=== PATIENT | female | born 1955 | race Caucasian/White ===

== ENCOUNTER 2018-05-14 06:11 | Day surgery (SDC) | payer BC, SELFPAY ==
--- NOTE | 2018-05-14 05:55 | PDOC.DSDIS_ITS ---
Discharge Plan Disposition Patient Disposition: HOME Condition: Good Discharge Details Reason For Visit: CHRONIC LLQ PAIN / SCREENING Attending Provider: Ana Rosa Shaver Primary Care Provider: Melissa Burns Home Meds and New Rx's Prescriptions: Continue ibuprofen 200 mg Tablet 200 - 600 mg PO QID PRNRF: 0 Discharge Instructions Instructions: Colonoscopy (DC), Diverticulosis (DC) Additional Instructions: Findings: Diverticulosis Follow up: 10 years New Medications: none Please call if you develop: fevers >101.5 Nausea or Vomiting Abdominal pain that is not transient 1. Because there will be medication in your system for the next 24 hours, you may feel a little sleepy. Your coordination will be affected. Therefore: a. Do not drive or operate dangerous equipment for 24 hours. b. Do not drink alcohol beverages for 24 hours (not even beer). c. Plan to go home and rest for the day. 2. Generally there are no restrictions on your activity after a day or so has gone by, but you may feel a bit fatigued for a few days. 3 After you arrive home you may have a light meal and return to a normal diet as you can tolerate it without feeling sick to your stomach. 4. After surgery, you may feel pain or discomfort. This should be only transient , but if it persists please contact your doctor. 5. If there are any questions regarding the findings of your procedure, please feel free to contact your doctor. 6. If you are unable to contact your doctor with a problem, contact the hospital at [phone]. 7. Continue all your regular medications unless directed otherwise. I understand the above instructions and have no questions. Signature of Patient or Responsible Adult Escort Date/Time Name of Responsible Adult Escort Signature of Nurse Date/Time Activity:: Activity as Tolerated Diet:: High Fiber diet Discharge Orders Discharge Orders: Discharge Order (Routine); Ordered 05/14/18 Ordered By: Ana Rosa Shaver DS: Diagnosis Discharge Diagnosis (1) Diverticulosis large intestine w/o perforation or abscess w/o bleeding: Status: Acute
--- NOTE | 2018-05-14 05:55 | W.COLOREPORT ---
Colonoscopy Report Date of procedure: 05/14/18 Pre-op diagnosis general: Colon Cancer screening, intermittent LLQ pain Post-op diagnosis procedure note: other (Sigmoid Diverticulosis) Procedure: Colonoscopy Surgeon: Ana Rosa Shaver Anesthesia proc note operative: MAC (Lenin Felder CRNA) Estimated blood loss (mL): 0 Pathology: none sent Complications: None Disposition: same day Indications: Mrs. Remy is a pleasant 62 year old female seen in the office for a screening Colonoscopy. She also complaint of intermittent LLQ pain. Has hx of diverticulosis about 5 years ago. Risks, benefits and complications were reviewed and she wished to proceed. No guarantees were given or implied. Prep: Miralax/Dulcolax Procedure Start Time: 07:25 Procedure End Time: 07:42 Retraction Time: 10 minutes Findings: Severe Diverticulosis of the sigmoid Colon. Procedure Description: After informed consent was obtained the patient was taken to the procedure room and placed in a left decubitous position. Monitors were applied and a time out was done. The patients name, date of , procedure, allergies to medications and metal in their body was reviewed. The patient was then sedated. Once sedated and comfortable a rectal exam was done. External exam was normal. Internal exam revealed a normal sphincter tone and no palpable masses. The scope was then introduced and retroflexed. No internal hemorrhoids were identified. The scope was then advanced to the cecum without difficulty. The TI and appendiceal orifice were identified. The prep was adequate. The scope was then slowly retracted over 10 minutes back into the rectum. The scope was removed and the patient was woken up and taken back to Same day surgery in stable condition. Diverticulosis of the sigmoid colon was identified. The patient tolerated the procedure well and there were no immediate complications. Follow up: The patient should follow up in 10 years unless they develop changes in bowel habits or other new gastrointestinal complaints.
--- NOTE | 2018-05-14 05:55 | W.PM.HP.N ---
Assessment and Plan (1) Encounter for screening colonoscopy: Current visit: No Status: Acute P\\ Colonoscopy under sedation Risks, benefits and complications were reviewed with the patient. Complications include but are not limited to bleeding, pain, perforation, missed small lesion or polyp, sore throat, aspiration or adverse reaction to the medication. Questions were answered to the patient's satisfaction and they wish to proceed. No guarantees were given or implied. Mrs. Remy was seen in the office on March 26 to discuss a colonoscopy. Her last colonoscopy was 10 years ago and she was found to have some mild diverticulosis about 5 years ago she had a bout of severe diverticulitis and was treated with antibiotics about 7 months ago now she started to have some mild left lower quadrant pain the pain is dull and there are spikes of pain intermittently. When she has the spikes of pain she places herself in a soft low-fat diet and the pain seems to get better. She has very regular BMs she has not had a follow-up CT scan because she is very claustrophobic and would need Versed to have it done when she was seen in the office in February she was not having any pain. There have been no changes in her health since she was seen in the office. Review of Systems Cardiovascular Denies chest pain, Denies chest pain at rest and Denies irregular heart rhythm Respiratory Denies chest congestion and Denies cough PFSH Family History Other Heart disease Medical History Chronic abdominal pain Claustrophobia Diverticulitis Dyspareunia in female Elevated blood pressure reading GERD (gastroesophageal reflux disease) Palpitations Social History Smoking/Tobacco Use Status: Former Tobacco Use Surgical History Colonoscopy - IV Sedation Meds Home Medications Medication Instructions Recorded Confirmed Type ibuprofen 200 - 600 mg PO QID PRN 05/13/18 05/13/18 History Allergies Allergy/AdvReac Type Severity Reaction Status Date / Time No Known Allergies Allergy Unverified 05/13/18 08:30 Exam Resp Effort & Inspection: normal respiratory effort Auscultation: clear to auscultation bilaterally Cardio Rate: regular rate Rhythm: regular rhythm Heart Sounds: no gallops, no murmurs and no rubs
[2018-05-14 06:22] VITALS: BP 131/91; PULSE 99; RESP 18; TEMP 36.3; O2SAT 97
[2018-05-14] MEDS: Lactated Ringers 1,000 ML 80 ML IV (06:46)
== END 2018-05-14 08:40 | disposition home or self-care (01) ==
PROVIDERS: PCP Family Medicine; Visit Provider Surgery
PROC: 0DJD8ZZ Inspection of Lower Intestinal Tract, Via Natural or Artificial Opening Endoscopic (ICD-10-PCS; CPT 45378; principal; 2018-05-14 07:30)
DX: Z12.11 Encounter for screening for malignant neoplasm of colon (principal); R10.32 Left lower quadrant pain; K57.30 Diverticulosis of large intestine without perforation or abscess without bleeding
CPT/HCPCS: 45378; NC; J2250; J3010

== ENCOUNTER 2019-05-27 09:51 | Outpatient (CLI) | payer BC, SELFPAY ==
[2019-05-27 11:01] LABS: C-Reactive Protein 0.05 mg/dL (0.0-0.3)
[2019-05-27 11:24] LABS: ESR 19 mm/hr (0-30)
== END 2019-05-27 10:11 ==
PROVIDERS: PCP Family Medicine; Visit Provider Psychiatry & Neurology Neurology
DX: R51 Headache (principal); R20.0 Anesthesia of skin
CPT/HCPCS: 36415; 85652; 86140

== ENCOUNTER 2019-06-04 15:58 | Outpatient (REF) | payer BC, SELFPAY ==
[2019-06-04 19:27] LABS: HCT 37.4 % (36.0-46.0); HGB 12.7 g/dL (12.0-15.5); Mean Corpuscular Hemoglobin 29.7 pg (27.0-33.0); Mean Corpuscular Volume 87.4 fL (80-95); Mean Platelet Volume 10.2 fL (8.0-11.0); Platelet Count 284 x1000/uL (130-400); RBC 4.28 m/cumm (4.00-5.20); RBC Distribution Width 12.6 % (11.7-14.6)
[2019-06-04 19:38] LABS: Anion Gap 7.5 mmol/L (3-11); BUN 15 mg/dL (7-18); CO2 29.5 mmol/L (21.0-32.0); CREATININE 0.85 mg/dL (0.55-1.02); Calcium 8.8 mg/dL (8.5-10.1); Chloride 106 mmol/L (98-107); Glucose 90 mg/dL (70-100); Potassium 3.8 mmol/L (3.5-5.1); Sodium 143 mmol/L (136-145)
[2019-06-04 20:03] LABS: Hemoglobin A1C 5.3 % (4.5-6.2)
== END 2019-06-04 16:18 ==
LOC: NCHCN 15:58
PROVIDERS: PCP Family Medicine; Visit Provider Family Medicine
DX: R03.0 Elevated blood-pressure reading, without diagnosis of hypertension (principal); R00.2 Palpitations; Z13.1 Encounter for screening for diabetes mellitus; Z00.00 Encounter for general adult medical examination without abnormal findings
CPT/HCPCS: 80048; 85027; 83036

== ENCOUNTER 2021-06-15 13:38 | Outpatient (REF) | payer BC, SELFPAY ==
--- NOTE | 2021-06-15 08:30 | PAPFT_PTH ---
PATIENT: Salma Remy LOC: LOCATED WITHIN [facility]#:[id number] AGE/SX: 65/F ROOM: RE06/15/[address]: Melissa Burns : 1955 BED: DIS: 06/15/2021 SPEC #: [id number] RECD: 06/15/21 18:28 STATUS: TRICIA REQ #: [id number] JEEVAN: 06/15/21 08:[address]: Melissa Burns DEPT: [facility] Cytology RECD BY: Ángela Davis Tissues: 1 - CX/ENDOCX FOR PAP SMEARS Procedures: PAP THIN PREP/UVM Screening HPV DNA PROBE Comments: [id number]
[2021-06-15 14:44] LABS: HCT 38.9 % (36.0-46.0); HGB 12.9 g/dL (11.2-15.7); MCH 28.7 pg (27.0-33.0); MCHC 33.2 % (32.0-36.0); MCV 86.4 fL (80-95); MPV 10.8 fL (8.0-11.0); Platelet Count 271 10^3/uL (130-400); RDW 12.3 % (11.7-14.6); RDW-SD 39.4 fL; WBC 4.94 10^3/uL (4.4-10.8)
[2021-06-15 15:03] LABS: Hemoglobin A1C 5.1 % (<5.7)
[2021-06-15 15:10] LABS: ALT 36 U/L (14-59); AST 25 U/L (15-37); Alkaline Phosphatase 114 U/L (46-116); Anion Gap 10.9 mmol/L (3-11); BUN 15 mg/dL (7-18); Bilirubin, Total 0.3 mg/dL (0.2-1.0); CO2 27.1 mmol/L (21.0-32.0); CREATININE 0.8 mg/dL (0.55-1.02); Calcium 8.9 mg/dL (8.5-10.1); Chloride 105 mmol/L (98-107); Glucose 91 mg/dL (74-106); Sodium 143 mmol/L (136-145); TSH (W/Ref FT4) 2.96 uIU/mL (0.36-3.74); Total Protein 7.5 g/dL (6.4-8.2)
[2021-06-16 10:52] LABS: Hepatitis C Ab w Rflx HCV PCR Negative (Negative)
[2021-06-16 11:20] LABS: HIV-1/2 Ag & Ab Screen Negative (Negative)
[2021-06-20 15:05] LABS: IgA 116 mg/dL (85-499); Interpretation (See Note); Tissue Transglutaminase IgA <1.2 U/mL (<4.0)
== END 2021-06-15 13:39 | disposition home or self-care (01) ==
LOC: NCHCN 13:38
PROVIDERS: PCP Family Medicine; Visit Provider Family Medicine
DX: R23.8 Other skin changes (principal); R10.9 Unspecified abdominal pain; R00.2 Palpitations; Z11.59 Encounter for screening for other viral diseases; Z12.4 Encounter for screening for malignant neoplasm of cervix; Z11.4 Encounter for screening for human immunodeficiency virus [HIV]
CPT/HCPCS: 80053; 82784; 83516; 85027; 86803; 87389; 88142; 83036; 84443; 87624

== ENCOUNTER 2021-07-27 07:39 | Outpatient (RCR) | payer BC, SELFPAY ==
--- NOTE | 2021-07-27 09:45 | HOLTER_ITS ---
APPROVED REPORT Conclusion This is a 48-hour Holter monitor ordered for palpitations Predominant rhythm was sinus with an average heart rate of 70. Minimum was 53, maximum 112 A total of 10 isolated atrial premature beats were recorded There were very rare ventricular ectopic beats, 1 couplet, 1 triplet. There was a 5 beat run of acce lerated idioventricular rhythm rate approximately 50 There was no atrial fibrillation, no high-grade AV block, no pauses greater than 3 seconds Patient symptoms corresponded to sinus rhythm in the 80s
== END 2021-07-29 23:59 | disposition home or self-care (01) ==
LOC: RT 07:39
PROVIDERS: PCP Family Medicine; Visit Provider Family Medicine
DX: R00.2 Palpitations (principal); I49.1 Atrial premature depolarization; I49.8 Other specified cardiac arrhythmias
CPT/HCPCS: 93225; 93226

== ENCOUNTER 2021-09-28 10:21 | Outpatient (REF) | payer BC, SELFPAY ==
[2021-09-28 14:48] LABS: Anion Gap 9.4 mmol/L (3-11); BUN 20 mg/dL (7-18); CO2 26.6 mmol/L (21.0-32.0); CREATININE 0.9 mg/dL (0.55-1.02); Calculated LDL 149 mg/dL (<100); Chloride 106 mmol/L (98-107); Cholesterol 244 mg/dL (<200); Glucose 90 mg/dL (74-106); HDL Cholesterol 43 mg/dL (40-60); Potassium 4.4 mmol/L (3.5-5.1); Sodium 142 mmol/L (136-145); Triglyceride 264 mg/dL (<150)
== END 2021-09-28 10:22 | disposition home or self-care (01) ==
LOC: LBN 10:21
PROVIDERS: PCP Family Medicine; Visit Provider Family Medicine
DX: I10 Essential (primary) hypertension (principal); Z13.220 Encounter for screening for lipoid disorders
CPT/HCPCS: 80048; 80061

== ENCOUNTER 2022-01-04 13:32 | Outpatient (REF) | payer BC, SELFPAY ==
[2022-01-04 21:14] LABS: ALT 32 U/L (14-59); AST 26 U/L (15-37); Albumin 3.9 g/dL (3.4-5.0); Alkaline Phosphatase 113 U/L (46-116); Anion Gap 7.8 mmol/L (3-11); BUN 11 mg/dL (7-18); Bilirubin, Total 0.3 mg/dL (0.2-1.0); CO2 28.2 mmol/L (21.0-32.0); CREATININE 0.8 mg/dL (0.55-1.02); Calcium 8.7 mg/dL (8.5-10.1); Chloride 105 mmol/L (98-107); Glucose 81 mg/dL (74-106); Potassium 3.9 mmol/L (3.5-5.1); Sodium 141 mmol/L (136-145); Total Protein 7.3 g/dL (6.4-8.2)
== END 2022-01-04 13:33 | disposition home or self-care (01) ==
LOC: NCHCN 13:32
PROVIDERS: PCP Family Medicine; Visit Provider Family Medicine
DX: R10.9 Unspecified abdominal pain (principal); I10 Essential (primary) hypertension
CPT/HCPCS: 80053

== ENCOUNTER → 2022-03-08 01:42 | Outpatient (CLI) | payer BC, SELFPAY ==
--- NOTE | 2022-03-08 | DI.MAMMO_ITS ---
Exam(s) MAMMO SCREENING EXAM: MAMMO SCREENING CLINICAL HISTORY: SCREENING, Z12.39 TECHNIQUE: Mammograms were interpreted according to the usual protocol including computer analysis w [employer] CAD system, tomosynthesis and C-view imaging. COMPARISON: FINDINGS: The breasts are of moderate density with fairly symmetrical distribution of fibroglandular tissue. N o dominant mass or clumped microcalcification is identified in either breast. The current examinatio n is compared with previous examinations including January 2018 and there has been no gross interval chu nge in appearance in comparison with prior studies. IMPRESSION: No specific evidence of malignancy at this time. Routine screening examinations are suggested at yea rly intervals in this age group according to the ACS ACR guidelines. BI-RADS Category 1 - Negative Breast Density - Category B - Scattered areas of fibroglandular density
== END ==
PROVIDERS: PCP Family Medicine; Visit Provider Family Medicine
DX: Z12.31 Encounter for screening mammogram for malignant neoplasm of breast (principal)
CPT/HCPCS: 77063; 77067

== ENCOUNTER 2022-05-19 10:59 | Emergency (ER) | payer BC, SELFPAY ==
[2022-05-19 11:12] VITALS: BP 132/86; PULSE 115; RESP 22; TEMP 39.1; O2SAT 99
[2022-05-19 12:09] LABS: COVID-19 PCR Negative (Negative); Influenza A PCR Negative (Negative); Influenza B PCR Negative (Negative); RSV PCR Negative (Negative)
--- NOTE | 2022-05-19 12:23 | ED.GENADUL_ITS ---
Discharge Plan Disposition Patient Disposition: HOME Condition: Improving Discharge Details Clinical Impression: Acute streptococcal pharyngitis, Fever Primary Care Provider: Melissa Burns ED Provider: Mikayla Kramer Home Meds and New Rx's Prescriptions: Continued lisinopril 5 mg tablet 5 mg PO DAILY metoprolol succinate 25 mg tablet extended release 24 hr 25 mg PO DAILY omeprazole 40 mg capsule,delayed release(DR/EC) 40 mg PO DAILY ibuprofen 200 mg tablet 200 mg PO Q6H PRN ibuprofen 200 mg Tablet 200 - 600 mg PO QID PRN Discharge Instructions Instructions: Pharyngitis (ED), Fever in Adults (ED) Additional Instructions: Your rapid strep test today is positive. You were given a dose of antibiotics for treatment of strep throat which is a bacterial infection. Your monoscreen test for the viral infection mononucleosis is still pending and you will be notified if it is positive. Drink plenty of fluids and get plenty of rest. Alternate tylenol and motrin as needed and directed for pain. Follow-up with your primary care doctor in 1 week. Return to the emergency department with any worsening or new concerning symptoms. Discharge Data Discharge Physician: Mikayla Kramer Medical Decision Making 66-year-old female presents with fever, sore throat, body aches and headache for the past 4 days status post a COVID-vaccine. Temp 102.4 on arrival. Last dose of Tylenol 8 AM this morning and last dose of ibuprofen last night. Patient appears uncomfortable but nontoxic. She has no meningeal signs. Her oropharynx is edematous with white exudates. Anterior cervical lymphadenopathy. Uvula midline, no peritonsillar abscess. Lungs clear bilaterally. Abdomen soft and nontender. Due to high volume and acuity on arrival, fluvid swab obtained on arrival and negative. Discussed with patient that her symptoms could be secondary to the COVID-vaccine but due to her oropharyngeal findings and sore throat, consider strep pharyngitis or mono. She declined an IV or IV fluids. History and presentation does not appear consistent with meningitis. Will obtain a rapid strep, monoscreen and give a dose of PO decadron and oral Tylenol and ibuprofen and reassess. Recheck temp downtrending to 100.7. Rapid strep positive. Discussed with patient and she is agreeable with a Bicillin injection. Patient feels comfortable going home. Discussed that monoscreen is pending. Advised to increase fluids and rest. Advised to follow up with the primary care doctor for re-evaluation. Usual and customary return precautions given prior to discharge. Medical Records Medical records reviewed: Yes I reviewed the patient's medical records. HPI General Mode of arrival: ambulatory . Date/Time Provider Initiated Documentation: 05/19/22 11:20 . Limitations to Documentation: no limitations . Information obtained by: patient . HPI Narrative: Pt is a 66-year-old female presents with 4 days of fever, headache, sore throat, body aches and fatigue. Patient states she received the COVID-vaccine 4 days ago. Patient states she has been taking Tylenol and ibuprofen for her fever with temporary relief. She states her last dose of ibuprofen was last night and last dose of Tylenol was with Coricidin BP 8:00 this morning. She states her headache is mainly frontal. She denies any posterior headache. She does admit to neck pain but states this is chronic and slightly worse than usual. She denies any chest pain or difficulty breathing, abdominal pain, vomiting or diarrhea. Related Data Home Medications Medication Instructions Recorded Confirmed ibuprofen 200 mg tablet 200 - 600 mg PO QID PRN 05/13/18 05/19/22 ibuprofen 200 mg tablet 200 mg PO Q6H PRN 08/23/21 05/19/22 omeprazole 40 mg capsule,delayed 40 mg PO DAILY 08/23/21 05/19/22 release lisinopril 5 mg tablet 5 mg PO DAILY 09/07/21 05/19/22 metoprolol succinate 25 mg 25 mg PO DAILY 09/07/21 05/19/22 tablet,extended release 24 hr Allergies Allergy/AdvReac Type Severity Reaction Status Date / Time No Known Allergies Allergy Verified 09/07/21 12:45 General Stated Complaint: GenMedical ABDULLAHI: 3 Review of Systems All systems reviewed & are unremarkable except as noted in HPI and below Constitutional Constitutional: Reports as per HPI, Reports body ache(s), Denies chills, Reports fatigue, Reports fever(s) and Reports headache(s) Eyes Eyes: Denies blurry vision ENT Ears, Nose, Mouth, and Throat: Denies dizziness, Reports headache(s), Reports sore throat and Denies throat swelling Cardiovascular Cardiovascular: Denies chest pain and Denies dyspnea Respiratory Respiratory: Denies cough and Denies dyspnea Gastrointestinal Gastrointestinal: Denies abdominal pain, Denies diarrhea and Denies vomiting Genitourinary Genitourinary: Denies hematuria and Denies dysuria Musculoskeletal Musculoskeletal: Denies back pain and Denies numbness Integumentary/Breasts Skin/Breast: Denies lesions and Denies rash Neurologic Neurologic: Denies dizziness, Reports headache(s), Denies localized weakness and Denies numbness Endocrine Endocrine: Reports fatigue Allergic/Immunologic Allergic/Immunologic: Denies throat swelling PFSH All Active Problems (Updated 05/19/22 @ 13:59 by Mikayla Kramer DO) Acute streptococcal pharyngitis (Acute) Fever (Acute) Referred otalgia of left ear (Acute) Lactose intolerance (Acute) Mitral valve regurgitation (Chronic) Left ventricular hypertrophy (Acute) Hypertension, essential, benign (Acute) Cervical lymphadenopathy (Acute) Left ear pain (Acute) Left facial pain (Acute) Diverticulosis large intestine w/o perforation or abscess w/o bleeding (Acute) Encounter for screening colonoscopy (Acute) Neoplasm of unspecified nature of bone, soft tissue, 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/17) Medical History Abdominal pain, epigastric Chronic abdominal pain Claustrophobia Diverticulitis Dyspareunia in female Elevated blood pressure reading GERD (gastroesophageal reflux disease) Herpes labialis Hx of diverticulitis of colon Palpitations Surgical History Colonoscopy - IV Sedation 2007- H/O section x3 S/P appendectomy Family History Mother Heart disease Sister Thyroid condition Autoimmune liver disease Brother Thyroid condition Diabetes Brother Diabetes Social History Smoking/Tobacco Use Status: Former Tobacco Use Quit Date: 07/30/82 Pack-years: 8 Smoking risk assessment performed?: Yes Alcohol Intake: never Drug use: Never Substance use type: does not use Household members: spouse Housing: house Number of Children: 5 current occupation: [employer] Pets and animals: Yes Pets and animals: cat(s) and dog(s) What is your relationship status?: Panel score (0-1 are the most socially isolated patients): 1 Seatbelt use: always Do you feel safe in your relationship?: Yes Exam Const General: cooperative, healthy appearing and no acute distress Orientation: alert, awake and oriented x3 HENMT Head: normal to inspection Ears: hearing grossly normal bilaterally, external ears normal and TM's normal bilaterally Face and sinus: normal facial exam Throat: uvula midline, no peritonsillar masses and posterior oropharynx abnormal edema, erythema and exudates Eyes General: appearance normal, both eyes and all related structures Pupils: PERRL EOM: EOM intact bilaterally Neck Neck: normal visual inspection and No submandibular swelling Lymphatic: lymphadenopathy bilateral anterior cervical soft and tender Chest Chest: normal inspection of the chest and no tenderness Resp Effort & Inspection: normal respiratory effort and able to speak in complete sentences Auscultation: clear to auscultation bilaterally Cardio Rate: tachycardic Rhythm: regular rhythm GI Inspection: normal to inspection Palpation: soft, not firm, not rigid and nontender Auscultation: hypoactive bowel sounds Back/Spine/Pelvis Thoracic/Lumbar Spine: thoracic and lumbar spine normal to inspection Pelvis: no pain with anterior-posterior compression Skin General skin exam: no rashes or lesions noted Neuro General: patient alert, patient awake, patient oriented x3, moves all extremities and no meningeal signs Cranial Nerves: CN's II-XI intact bilaterally Cognition: normal cognition Speech: speech normal Motor: muscle tone normal throughout and strength 5/5 throughout Sensory Exam: no sensory deficits noted Extrem General: normal to inspection, full ROM, capillary refill normal, no calf tenderness bilaterally and no edema Psych Appearance: grossly normal Mental Status: mental status grossly normal Speech and Movement: speech and movement normal Affect: normal affect Course Vital Signs Vital signs: Vital Signs Temperature 102.3 F H 05/19/22 11:12 Pulse 115 H 05/19/22 11:12 Respiratory Rate 05/19/22 11:12 Blood Pressure 132/86 05/19/22 11:12 Pulse Oximetry 99 05/19/22 11:12 Temperature 102.3 F H 05/19/22 11:12 Temperature Source Oral 05/19/22 11:12 Pulse 115 H 05/19/22 11:12 Respiratory Rate 05/19/22 11:12 Blood Pressure 132/86 05/19/22 11:12 Blood Pressure Position Sitting 05/19/22 11:12 Pulse Oximetry 99 05/19/22 11:12 Oxygen Delivery Method Room Air 05/19/22 11:12 Oxygen Flow Rate 0 05/19/22 11:12 Lab/Test Results Lab/Test Results: Laboratory Tests Range/Units 05/19/22 11:24 COVID-19 Source Not Applicable SARS-CoV-2 (PCR) (Negative) Negative Influenza Type A (PCR) (Negative) Negative Influenza Type B (PCR) (Negative) Negative RSV (PCR) (Negative) Negative
[2022-05-19] MEDS: Acetaminophen 500 MG TAB 1000 MG PO (12:33)
[2022-05-19] MEDS: Ibuprofen 600 MG TAB PO (12:33)
[2022-05-19] MEDS: Dexamethasone 10 MG/ML VIAL PO (13:04)
[2022-05-19 13:15] LABS: Mono Screening Negative (Negative)
[2022-05-19 13:24] VITALS: RESP 18
[2022-05-19 13:27] VITALS: TEMP 38.2
[2022-05-19 13:56] VITALS: BP 103/69; PULSE 88; RESP 18; TEMP 38.2; O2SAT 95
== END 2022-05-19 14:10 | disposition home or self-care (01) ==
PROVIDERS: Emergency Provider Physician Assistant; PCP Family Medicine
DX: J02.0 Streptococcal pharyngitis (principal); B95.0 Streptococcus, group A, as the cause of diseases classified elsewhere; Z20.822 Contact with and (suspected) exposure to COVID-19
CPT/HCPCS: 36415; 87637; 87880; 96372; 99284; 86308; J0561; J1100

== ENCOUNTER 2022-11-14 01:30 | Outpatient (CLI) | payer MEDICARE, BC, SELFPAY ==
--- NOTE | 2022-11-14 | DI.US_ITS ---
APPROVED REPORT EXAM: Comprehensive 2D, Doppler, and color-flow Echocardiogram Patient Location: Out-Patient Military Analyst: Lex Shore RDMS, RVT Indications: mitral valve regurgitation Conclusion Normal left ventricular wall thickness and chamber size. Ejection fraction is greater than 70%. Wal l motion is normal Normal right ventricular size and systolic function Both atria are normal in size There are no structural valvular abnormalities There is mild mitral regurgitation Estimated right ventricular systolic pressure is 18 mmHg Wall motion Left Ventricle The left ventricle is normal size. The left ventricular systolic function is normal. The left ventric ular ejection fraction is within the normal range. There is normal left ventricular wall thickness. T here is normal LV segmental wall motion. There is no ventricular septal defect visualized. LVEF is >7 0%. Right Ventricle The right ventricle is normal size. The right ventricular systolic function is normal. The RVSP is 18 .0 mmHg. Atria The left atrium size is normal. The right atrium size is normal. The interatrial septum is intact wit h no evidence for an atrial septal defect. Aortic Valve The aortic valve is normal in structure. Aortic valve is trileaflet. There is no aortic valvular sten osis. No aortic regurgitation is present. Mitral Valve The mitral valve is normal in structure. No evidence of mitral valve stenosis. Mild mitral regurgitat ion. Tricuspid Valve The tricuspid valve is normal in structure. There is no tricuspid valve stenosis. Trace tricuspid reg urgitation. Pulmonic Valve The pulmonary valve is normal in structure. There is no pulmonic valvular stenosis. There is no pulmo tom valvular regurgitation. Great Vessels The aortic root is normal in size. The ascending aorta is normal IVC is normal in size and collapses >50% with inspiration. Pericardium There is no pericardial effusion. 2D Dimensions IVSD d PLAX 0.79 cm F: 0.6-1.0 LV Vol A2C d MOD 51.4 mL LVPW d PLAX 0.87 cm F: 0.6 - 1.0 LV Vol A4C d MOD 74.3 mL LVID d PLAX 4.23 cm F: 3.8 - 5.2 LA vol/ BSA A4C s A-L 29.6 mL/m2 LVDs 2.55 cm F: 2.2 - 3.5 LA Area A4C s MOD 18.05 cm2 Ao Root d 2.93 cm F: 2.7 - 3.3 LV EF A4C MOD 73.2 % Ao Asc Diam d 3.29 cm F: 2.3 - 3.1 LV EF A2C MOD 75.2 % LV EF Teichholz 69.9 % LV EF Biplane MOD 73.8 % LVEF (Stoddard's) 73.82 % F: 54 - 74 SV 45.94 mL LV Volume 47.99 mL F: 46 - 106 SV Index 24.92 mL/m2 LV Volume Index 26.08 mL/m2 F: 29 - 61 LV Vol Biplane MOD 62.2 mL FS 39.10 % M-Mode TAPSE 1.91 cm (M/F) >1.7 LV Diastology MV E' medial 0.109 (>0.07 m/s) E/A Ratio 1.1 LV E/e MED 5.70 (<14) MV E Vmax 0.62 (0.4-1.3 m/s) MV E' lateral 0.121 (>0.1 m/s) MV A Vmax 0.55 (0.4-1.3 m/s) LV E/e LAT 5.10 (<14) MV E/A Ratio 1.06 MV E/E' medial 5.74 MV E/E' lateral 5.14 Aortic Valve LVOT Area 3.77 cm2 AoV Area Vmax 3.19 cm2 LVOT Vmax 1.11 m/s AoV Area/ BSA (Vmax) 1.73 cm2/m2 LVOT Mean Rafat. 0.84 m/s KENROY Mean Rafat. 3.20 cm2 LVOT Peak Grad 4.9 mmHg KENROY Mean Rafat. Index 1.73 cm2/m2 LVOT Mean Grad 3.1 mmHg LVOT VTI 0.275 m LVOT Diam s 2.15 cm AoV Vmax 1.31 m/s Velocity Ratio 0.85 AoV Mean Rafat. 0.99 m/s AoV Peak Grad 6.9 mmHg LVOT SV 103.66 mL AoV Mean Grad 4.2 mmHg AoV VTI 0.287 m AoV Area VTI 3.61 cm2 AoV Area/ BSA (VTI) 1.96 cm/m2 Mitral Valve MV DT 216 (160-240 msec) MV PHT 63 msec MV Area PHT 3.52 cm2 Pulmonary Valve PV Vmax 0.84 (0.5-1.5 m/s) RVOT Peak Gr. 2.11 mmHg PV Peak Grad 2.8 mmHg RVOT Mean Gr. 1.15 mmHg PV Mean Grad 1.9 mmHg RVOT VTI 0.159 m PV VTI 0.190 m RVOT Vmax 0.73 m/s Tricuspid Valve TR Peak Grad 14.9 mmHg TR Vmax 1.94 m/s RA Pressure 3.00 mmHg RVSP (TR) 18.0 mmHg
== END 2022-11-14 01:50 ==
PROVIDERS: PCP Family Medicine; Visit Provider Family Medicine
DX: I34.0 Nonrheumatic mitral (valve) insufficiency (principal)
CPT/HCPCS: 93306

== ENCOUNTER 2023-06-28 13:07 | Outpatient (REF) | payer MEDICARE, BC, SELFPAY ==
[2023-06-28 18:18] LABS: Abs Immature Grans 0.03 10^3/uL (0.0-0.06); Absolute Basophil Count 0.05 10^3/uL (0.0-0.2); Absolute Eosinophil Count 0.11 10^3/uL (0.0-0.7); Absolute Lymphocyte Count 1.74 10^3/uL (1.2-3.4); Absolute Monocyte Count 0.45 10^3/uL (0.1-0.8); Absolute Neutrophil Count 3.28 10^3/uL (1.2-6.7); Basophils % 0.9; Eosinophils % 1.9; HCT 37.7 % (36.0-46.0); HGB 12.6 g/dL (11.2-15.7); Immature Grans % 0.5; Lymphocytes % 30.7; MCH 28.9 pg (27.0-33.0); MCHC 33.4 % (32.0-36.0); MCV 87 fL (80-95); MPV 10.2 fL (8.0-11.0); Platelet Count 267 10^3/uL (130-400); RBC 4.36 10^6/uL (3.93-5.22); RDW 12.6 % (11.7-14.6); RDW-SD 39.7 fL; WBC 5.66 10^3/uL (4.4-10.8)
[2023-06-28 18:41] LABS: ALT 33 U/L (14-59); AST 25 U/L (15-37); Albumin 4.1 g/dL (3.4-5.0); Alkaline Phosphatase 105 U/L (46-116); Anion Gap 8.3 mmol/L (3-11); BUN 16 mg/dL (7-18); Bilirubin, Total 0.3 mg/dL (0.2-1.0); CO2 27.7 mmol/L (21.0-32.0); CREATININE 0.8 mg/dL (0.55-1.02); Calculated LDL 146 mg/dL (<100); Chloride 105 mmol/L (98-107); Cholesterol 248 mg/dL (<200); Estimated GFR 81.72 (mL/min/1.73m2); Glucose 92 mg/dL (74-106); HDL Cholesterol 43 mg/dL (40-60); Potassium 4.1 mmol/L (3.5-5.1); Sodium 141 mmol/L (136-145); TSH (W/Ref FT4) 2.81 uIU/mL (0.36-3.74); Total Protein 7.9 g/dL (6.4-8.2); Triglyceride 298 mg/dL (<150)
== END 2023-06-28 13:08 | disposition home or self-care (01) ==
LOC: NCHCN 13:07
PROVIDERS: PCP Family Medicine; Visit Provider Nurse Practitioner Family
DX: I10 Essential (primary) hypertension (principal); R00.2 Palpitations; R06.9 Unspecified abnormalities of breathing; Z13.6 Encounter for screening for cardiovascular disorders
CPT/HCPCS: 80053; 80061; 84443; 85025

== ENCOUNTER 2023-07-31 08:43 | Outpatient (CLI) | payer MEDICARE, BC, SELFPAY | END 2023-07-31 08:44 | disposition home or self-care (01) | PROVIDERS: PCP Family Medicine; Visit Provider Nurse Practitioner Family | DX: I49.1 Atrial premature depolarization (principal) | CPT/HCPCS: 93246 ==

== ENCOUNTER → 2023-09-04 02:46 | Outpatient (CLI) | payer MEDICARE, BC, SELFPAY ==
--- NOTE | 2023-09-04 | DI.MAMMO_ITS ---
Exam(s) MAMMO SCREENING EXAM: MAMMO SCREENING CLINICAL HISTORY: SCREENING, Z12.31. TECHNIQUE: Bilateral full field digital CC and MLO mammographic images were obtained with 3D tomosyn thesis and utilizing computer aided detection (CAD). COMPARISON: Prior mammograms were reviewed. FINDINGS: There has been no significant change in the appearance and distribution of the fibroglandular tissue. There are no CAD designations. There are no new spiculated masses nor malignant appearing microcalcification groups. There is no significant architectural distortion nor skin thickening-retraction. IMPRESSION: No radiographic evidence of malignancy. BI-RADS Category 1 - Negative Breast Density - Category B - Scattered areas of fibroglandular density Breast density Category C or D implies that the patient has dense breast tissue. Dense breast tissue can make it harder to find cancer on a mammogram. Dense breast tissue is also associated with an incr eased risk of breast cancer. This information about the result of the mammogram report was provided to the patient to raise their awareness. Use this report when you speak with the patient about their risks for breast cancer, which includes their family history. At that time, you may recommend additional screening tests (Ultrasoun d or MRI) as these tests may add significant information. A negative radiographic report should not delay biopsy if a dominant or clinically suspicious mass is present. Up to ten percent of cancers are not identified on mammography. A negative report may reinforce clinical impression. Adenosis and dense breasts may obscure an underlying neoplasm. False positive reports average 6 to 10%. Patient will receive a letter notifying them of these results.
== END ==
PROVIDERS: PCP Family Medicine; Visit Provider Nurse Practitioner Family
DX: Z12.31 Encounter for screening mammogram for malignant neoplasm of breast (principal)
CPT/HCPCS: 77063; 77067

== ENCOUNTER → 2023-09-25 02:10 | Outpatient (CLI) | payer MEDICARE, BC, SELFPAY ==
--- NOTE | 2023-09-25 | DI.US_ITS ---
APPROVED REPORT Exam: Exercise Treadmill Patient Location: Out-Patient Room/Bed: Stress Nurse: Piero Loja RN Ordering Provider:ROBERT NEWMAN, Contact Number: BMI: 25.49 Baseline Rhythm: Sinus Rhythm Comment: SR-ST Indications: Dyspnea on exertion. Medical History Medical History: GERD, MVR, LVH, HTN. Cardiac Medications: Metoprolol, Lisinopril. Allergies: No known drug allergies Cardiac Risk Factors: HTN, MVR. Pretest Chest Pain Characteristics: No chest pain Exercise History: Indeterminate Lung Sounds: Clear to auscultation Heart Sounds: Regular Stress Test Details Test: Exercise stress was performed using a manual protocol. Rest Stress HR Resting HR Supine: 94 bpm Max Heart Rate (APMHR): 155 bpm Resting HR Standin bpm Target HR (85% APMHR): 132 bpm Max HR Achieved: 160 bpm % of APMHR: 103 Recovery HR: 93 bpm HR response to stress: Normal HR response to stress BP Resting BP Supine: 136/72 mmHg Resting BP Standin/84 mmHg Max BP: 150/84 mmHg Recovery BP: 114/78 mmHg BP response to stress: Normal blood pressure response to stress. ECG Resting ECG: Sinus Rhythm Ectopy: none Stress ECG: Sinus Tachycardia ST Change: No significant ST segment changes noted Arrhythmia: None Recovery ECG: Sinus Rhythm Recovery ST Change: No significant ST segment changes noted Recovery Arrhythmia: None Clinical Reason for Termination: Target HR Achieved Stress Symptoms: None Exercise duration: 4 min07 sec Highest Stage Reached: Stage 2: 2.5 mph at 12% grade. Exercise capacity: 7 METs Angina Score: None Mehta Treadmill Score: 6 Rate Pressure Product: 77150 Stress ECG Conclusion 1. Electrocardiogram was normal limits 2. Patient exercised on Sheri protocol and completed a workload of 7 METS 3. Normal heart rate and blood pressure response to exercise. Patient achieved greater than 100% of predicted heart rate for age 4. There was no electrocardiographic evidence of myocardial ischemia 5. There were no dysrhythmias 6. Resting echocardiogram showed an ejection fraction of 65% with normal wall motion. Postexercise e chocardiogram ejection fraction greater than 80% with augmented contractility of all segments 7. There was no echocardiographic evidence of myocardial ischemia Mehta Treadmill Score is 6 which is Low risk. Stress Test Summary STAGE Time (mins) Speed (mph) Grade (%) HR BP SpO2 SYMPTOMS METS Supine 94 136/72 Standing 108 150/84 1 3 1.7 10 138 4.5 2 6 2.5 12 156 7 1 min recovery 119 3 min recovery 107 138/68 97 6 min recovery 92 114/78 When staff went to start test, the treadmill was not communicating with the computer and did not star t. Manual use of the treadmill was done to complete test and in manual mode the speeds and inclines o f a standard sheri protocol were used. Patient began truly exercising at 3:22 seconds, exercised for 4 minutes (1 minute into stage 2) when she hit her 100% max heart rate. At max heart rate the test wa s terminated and patient transitioned directly to stretcher for post test echo images.
== END ==
PROVIDERS: PCP Family Medicine; Visit Provider Nurse Practitioner Family
DX: R06.09 Other forms of dyspnea (principal)
CPT/HCPCS: 93306; 93350; 93017

== ENCOUNTER 2024-04-18 21:29 | Emergency (ER) | payer MEDICARE, BC, SELFPAY ==
[2024-04-18 21:35] VITALS: BP 172/87; PULSE 89; RESP 16; O2SAT 96
[2024-04-18 21:39] VITALS: BP 172/87; PULSE 89; RESP 16; TEMP 37.5; O2SAT 96
[2024-04-18 21:45] LABS: Abs Immature Grans 0.03 10^3/uL (0.0-0.06); Absolute Basophil Count 0.03 10^3/uL (0.0-0.2); Absolute Eosinophil Count 0.03 10^3/uL (0.0-0.7); Absolute Lymphocyte Count 1.71 10^3/uL (1.2-3.4); Absolute Monocyte Count 0.95 10^3/uL (0.1-0.8); Absolute Neutrophil Count 8.71 10^3/uL (1.2-6.7); Basophils % 0.3 %; Eosinophils % 0.3 %; HCT 38.3 % (36.0-46.0); HGB 13.2 g/dL (11.2-15.7); Immature Grans % 0.3 %; Lymphocytes % 14.9 %; MCH 29.9 pg (27.0-33.0); MCHC 34.5 % (32.0-36.0); MCV 87 fL (80-95); MPV 9.9 fL (8.0-11.0); Monocytes % 8.3 %; Neutrophils % 75.9 %; Platelet Count 234 10^3/uL (130-400); RBC 4.42 10^6/uL (3.93-5.22); RDW 12.2 % (11.7-14.6); RDW-SD 39.2 fL; WBC 11.47 10^3/uL (4.4-10.8)
[2024-04-18 21:59] LABS: ALT 50 U/L (14-59); AST 35 U/L (15-37); Albumin 3.9 g/dL (3.4-5.0); Alkaline Phosphatase 122 U/L (46-116); Anion Gap 9.5 mmol/L (3-11); BUN 14 mg/dL (7-18); CO2 25.5 mmol/L (21.0-32.0); CREATININE 0.9 mg/dL (0.55-1.02); Chloride 102 mmol/L (98-107); Estimated GFR 70.51 (mL/min/1.73m2); Glucose 100 mg/dL (74-106); Lipase 33 U/L (16-77); Potassium 4.1 mmol/L (3.5-5.1); Sodium 137 mmol/L (136-145)
[2024-04-18] MEDS: Normal Saline 1,000 ML 1000 ML IV (21:59)
--- NOTE | 2024-04-18 22:00 | DI.CT_ITS ---
Exam(s) CT ABDOMEN PELVIS W EXAM: CT ABDOMEN PELVIS W CLINICAL HISTORY: LLQ pain, hx of divertic. TECHNIQUE: Imaging Protocol: Axial computed tomography images with coronal and sagittal reformatted images were created and reviewed CONTRAST MATERIAL: Intravenous: Omnipaque-350 100cc Oral: None COMPARISON: No exams were available for comparison FINDINGS: VISUALIZED LUNG BASES: No nodules nor pleural effusions evident. ABDOMEN: There is no ascites. LIVER: There are no focal hepatic lesions evident. No dilated intrahepatic ducts. GALLBLADDER/BILIARY: No obvious gallbladder pathology. CBD is not dilated. PANCREAS: No evidence of pancreatic mass nor dilatation of the pancreatic duct. SPLEEN: Spleen is not enlarged. No obvious intrasplenic lesions. Splenic and portal veins are paten t. ADRENALS: There are no significant adrenal masses. KIDNEYS:There are small benign cortical cysts in both kidneys, all measuring less than 1 cm and not r equiring further investigation. No solid renal masses. No calculi nor hydronephrosis.. No hydroure ter. Urinary bladder unremarkable. ABDOMINAL AORTA: Abdominal aorta is not enlarged. LYMPH NODES:There is no retroperitoneal nor paraaortic adenopathy. ABDOMINAL WALL: No evidence of significant anterior abdominal wall nor inguinal hernia. GI: Appendix is not identified. Ileocecal valve appears unremarkable. PELVIS: GI: There is sigmoid diverticulosis as well as diverticulosis of the descending-left colon. There is evidence of acute sigmoid diverticulitis in the left iliac fossa with mural thickening and Nimo colo tom streaking at this level. No free air but there is a small amount of free fluid in the dependent aspect of the hnbwap-les-th-sac region. LYMPH NODES: There is no intrapelvic nor inguinal adenopathy. REPRODUCTIVE: Uterus and adnexal regions unremarkable for age. URINARY BLADDER: No calculi nor obvious masses evident OSSEOUS: No fractures and no significant osseous lesions. IMPRESSION: 1. Findings are consistent with acute diverticulitis of the sigmoid. There is a small amount of free fluid in the dependent aspect of the pelvis which is most most probably related to the acute diverti culitis. There is no formed abscess at this time. Close follow-up recommended. RADIATION DOSE DELIVERED: 426.41mGy.cm Total DLP DATA REPOSITORY: All CT scans at this facility are submitted to the National Radiology Data Registry (NRDR) Dose Index Registry (DIR) with the [employer] (ACR). RADIATION OPTIMIZATION: All CT scans at this facility use at least one of these dose optimization te chniques: automated exposure control; mA and/or kV adjustment per patient size (includes targeted exa ms where dose is matched to clinical indication); or iterative reconstruction.
[2024-04-18 22:04] LABS: Calcium 9.3 mg/dL (8.5-10.1)
--- OUTSIDE RECORDS SUMMARY | 2024-04-18 22:10 | XMS_ITS | Encounter Summary ---
Author Organization [facility] Address [address] [place] [address] Care Team Providers Care Cooker Meal Name Role Phone Melissa Burns MD Primary Care Provider [phone] Encounter Details Date Type Department Care Team (Late st Contact Info) Description 06/15/2021 Lab Requisition [facility] Pathology & Laboratory Medicine - [address] [address] Outr Resulting Lab, Provider Social History Tobacco Use Types Packs/Day Years Used Date Smoking Tobacco: Never Assessed Interpersonal Safety Answer Date Record ed Physically Hurt Never 02/29/2020 Verbally Threaten Not on file 02/29/2020 Sex and Gender Information Value Date Recorded Sex Assigned at Not on file Gender Identity Not on file Sexual Orientation Not on file documented as of this encounter Plan of Treatment Not on file documented as of this encounter Procedures Procedure Name Priority Date/Time Associated Diagnosis Comments CELIAC DISEASE PANEL Routine 06/15/2021 9:00 EST HEPATITIS C AB W REFLEX TO HCV RNA BY PCR Routine 06/15/2021 9:00 EST documented in this encounter Results * HEPATITIS C AB W REFLEX TO HCV RNA BY PCR (06/15/2021 9:00 EST) Hep C Antibody Negative Negative 06/16/2021 10:48 EST [facility] Blood VENOUS BLOOD / Unknown 06/15/2021 9:00 EST 06/15/2021 21:11 EST Provider Outr Resulting Lab CHEMISTRY & BLOOD GAS ORDERABLES Performing Organization Address [facility] Co de Phone Number [facility] [address] [place] [address] * CELIAC DISEASE PANEL (06/15/2021 9:00 EST) Tissue Transglutaminase Antibody IGA <1.2 <4.0 U/mL 06/20/2021 15:00 EST [facility] Comment: A negative result may be due to IgA deficiency and does not rule out celiac disease. ? Negative: ??<4.0 U/mL ? Weak Positive: ??4.0 - 10.0 U/mL ? Positive: ??>10.0 U/mL Results were obtained with the [employer]-tTG IgA JESSICA assay on the [employer] DSX. IgA 116 85 - 499 mg/dL 06/20/2021 15:00 EST [facility] Celiac Disease Interpretation Negative Serology. Celiac disease unlikely. Approximately 10% of patients with celiac disease are seronegative. Patients who are already adhering to a gluten-free diet may also be seronegative. If celiac disease is highly clinically suspected, referral to gastroenterology for additional evaluation is recommended. 06/20/2021 15:00 EST [facility] Blood VENOUS BLOOD / Unknown 06/15/2021 9:00 EST 06/15/2021 21:11 EST Provider Outr Resulting Lab IMMUNOLOGY A ND SEROLOGY ORDERABLES [facility] [address] [place] [address] documented in this encounter Visit Diagnoses Not on filedocumented in this encounter Care Teams Cooker Meal Relationship Specialty Start Date End Date Melissa Burns MD [address] [place] [phone] PCP - General 07/03/12 documented as of this encounter
--- OUTSIDE RECORDS SUMMARY | 2024-04-18 22:10 | XMS_ITS | Encounter Summary ---
Author Organization [facility] Address [address] [place] [address] Care Team Providers Care Skein Winder Name Role Phone Unavailable Primary Care Provider Unavailabl e Encounter Details Date Type Department Care Team (Late st Contact Info) Description 06/12/2005 Results Only [facility] - Maple conversion [address] [place] [address] Melissa Spears MD [address] [place] [phone] Social History Tobacco Use Types Packs/Day Years Used Date Smoking Tobacco: Never Assessed Sex and Gender Information Value Date Recorded Sex Assigned at Not on file Gender Identity Not on file Sexual Orientation Not on file documented as of this encounter Plan of Treatment Not on file documented as of this encounter Procedures Procedure Name Priority Date/Time Associated Diagnosis Comments CYTOPATHOLOGY Routine 06/12/2005 0:00 EST documented in this encounter Results * CYTOPATHOLOGY (06/12/2005 0:00 EST) Pathology Report: CYTOPATHOLOGY REPORT Reports generated via electronic interface contain original data; however they are lacking the format of the original report. Caution should be taken when reading/interpreti ng unformatted reports. Name: ? HARLEEN REMY ? Accession #: ? [id number] : ? 1955 (Age: 49) ??F ?Collect Date: ? 06/12/2005 Location: ? [facility] ? Receive Date: ? 06/14/2005 Provider: ?MELISSA SPEARS MD Copy to: ? Specimen/Source: ?ThinPrep Pap Test, Cervix/Endocervix, processed on Branch ThinPrep Imaging System, with manual evaluation Last Menstrual Period: ? Other: ? HPVA - HPV testing requested if ASC-US on the current ThinPrep Pap test. ? SPECIMEN ADEQUACY ? Satisfactory for Evaluation - transformation zone component present - scant squamous epithelial component GENERAL CATEGORIZATION ? Negative for Intraepithelial Lesion or Malignancy ? Document reviewed and electronically signed by: ? Lynn Castro, HELIO(ASCP)(IAC) ? Report Date: ??06/16/2005 15:03 End of Report [facility] DON[facility] 06/12/2005 06/14/2005 Melissa Spears MD PATHOLOGY ORDERABLES Performing Organization Address City/State/[facility] Co de Phone Number [facility] DONAL[facility] [address] [place] [address] documented in this encounter Visit Diagnoses Not on filedocumented in this encounter
--- OUTSIDE RECORDS SUMMARY | 2024-04-18 22:10 | XMS_ITS | Clinical Summary ---
Author Organization [facility] Address [facility] [place] [address] Care Team Providers Care Professor Of Biblical Studies Name Role Phone Melissa Burns MD Primary Care Provider [phone] Allergies No known active allergies Medications Medication Sig Dispensed Refills Start Date End Date Status Omeprazole 20 mg TbEC 08/22/2010 Act tessie ferrous gluconate (FERGON) 325 mg tablet 08/22/2010 Active ascorbic acid (VITAMIN C) 250 mg tablet 08/22/2010 Active Active Problems Problem Noted Date Diagnosed Date Iron deficiency anemia 11/23/2010 Social History Tobacco Use Types Packs/Day Years Used Date Smoking Tobacco: Former Sex and Gender Information Value Date Recorded Sex Assigned at Not on file Gender Identity Not on file Sexual Orientation Not on file Last Filed Vital Signs Vital Sign Reading Time Taken Comments Blood Pressure 115/76 11/23/2010 1:01 PM EDT Pulse 71 11/23/2010 1:01 PM EDT Temperature 36.6 ??C (97.9 ??F) 11/23/2010 1:01 PM ED T Respiratory Rate 18 11/23/2010 1:01 PM EDT Oxygen Saturation 96% 11/23/2010 1:01 PM EDT Inhaled Oxygen Concentration - - Weight 73.9 kg (163 lb) 11/23/2010 1:01 PM EDT Height - - Body Mass Index - - Plan of Treatment Health Maintenance Due Date Last Done Comments CT Colonography 1955 Colonoscopy 1955 Colorectal Cancer Screening 1955 FIT DNA 1955 FIT 1955 Sigmoidoscopy (10 year) with FIT yearly 1955 Sigmoidoscopy 1955 Hepatitis C Screening 11/21/1975 Tdap adult 1976 Tetanus vaccine 1976 HPV test 11/21/1987 PAP Smear 11/21/1987 Breast Cancer Share Decision Needed 1997 Breast Cancer screening 1997 Zoster vaccine (1 of 2) 11/21/2007 Advance Directive 2012 Bone Density Scan 2022 Pneumoccocal Vaccine: 65+ (1 of 1 - PCV) 2022 Covid-19 Vaccine (1 - season) 2024 Influenza (Flu) vaccine (1 o f 1 - Influenza standard series) 03/30/2024 Care Teams Professor Of Biblical Studies Relationship Specialty Start Date End Date Melissa Burns MD [address] [facility] [address] [place] [address] PCP - General 06/21/10
--- OUTSIDE RECORDS SUMMARY | 2024-04-18 22:10 | XMS_ITS | Encounter Summary ---
Author Organization [facility] [place] [address] Care Team Providers Care Undercoat Sprayer Name Role Phone Melissa Burns MD Primary Care Provider [phone] Encounter Details Date Type Department Care Team (Late st Contact Info) Description 08/22/2010 11:30 AM EST Follow-Up Hematology Oncology at [address] [phone] Luke Laird MD [address] [place] [phone] Discharge Disposition: Home Social History Tobacco Use Types Packs/Day Years Used Date Smoking Tobacco: Never Assessed Sex and Gender Information Value Date Recorded Sex Assigned at Not on file Gender Identity Not on file Sexual Orientation Not on file documented as of this encounter Plan of Treatment Not on file documented as of this encounter Visit Diagnoses Not on filedocumented in this encounter Care Teams Undercoat Sprayer Relationship Specialty Start Date End Date Melissa Burns MD [facility] [address] [place], [place] [address] PCP - General 06/21/10 documented as of this encounter
--- OUTSIDE RECORDS SUMMARY | 2024-04-18 22:10 | XMS_ITS | Encounter Summary ---
Author Organization [facility] Address [address] [place] [address] Care Team Providers Care Commutator Operator Name Role Phone Unavailable Primary Care Provider Unavailabl e Encounter Details Date Type Department Care Team (Late st Contact Info) Description 05/01/2011 Results Only [facility] Laboratory Services - [facility] ([facility]) [address] [place], [place] [phone] Melissa Spears MD [address] [phone] Social History Tobacco Use Types Packs/Day Years Used Date Smoking Tobacco: Never Assessed Sex and Gender Information Value Date Recorded Sex Assigned at Not on file Gender Identity Not on file Sexual Orientation Not on file documented as of this encounter Plan of Treatment Not on file documented as of this encounter Procedures Procedure Name Priority Date/Time Associated Diagnosis Comments PAP TEST- RESULT ONLY Routine 05/01/2011 0:00 EDT documented in this encounter Results * PAP TEST- RESULT ONLY (05/01/2011 0:00 EDT) Pathology Report: CYTOPATHOLOGY REPORT Reports generated via electronic interface contain original data; however they are lacking the format of the original report. Caution should be taken when reading/interpreti ng unformatted reports. Name: ? HARLEEN REMY ? Accession #: ? [id number] ? : ? 1955 (Age: 55) ??F ?Collect Date: ? 05/01/2011 ? Location: ? [facility] ? Receive Date: ? 05/02/2011 ? Provider: MELISSA SPEARS MD Copy to: ? Final Report SPECIMEN ADEQUACY ? Satisfactory for Evaluation - transformation zone component present - scant squamous epithelial component secondary to excessive inflammation GENERAL CATEGORIZATION ? Negative for Intraepithelial Lesion or Malignancy ?? Last Menstural Period: 03/30/2011 Other: Additional clinical information: HX OF ABN PAP Specimen/Source: ??Pap Test, Cervix/Endocervix, ThinPrep Imaging System with manual evaluation Document reviewed and electronically signed by: ? HELIO Tse(ASCP) ? Report ??Date: 05/05/2011 15:55 HPV with Pap Test ? Date Ordered: ? 05/05/2011 ? Status: ?? Signed Out ?Date Complete: ? 05/10/2011 ? By: ??System Interface ? Date Reported: ? 05/10/2011 ? Interpretation RESULT: Negative for HPV types 16, 18, 31, 33, 35, 39, 45, 51, 52, 56, 58, 59, and 68. Comments Document reviewed and electronically signed by: ? System Interface ? Report date: 05/10/2011 By the signature above, the attending physician certifies that he/she has personally conducted a gross and/or microscopic examination of the described specimens and rendered or confirmed the above diagnosis. End of Report [facility] 05/01/2011 05/02/2011 Melissa Spears MD PATHOLOGY ORDERABLES Performing Organization Address City/State/[facility] Co de Phone Number [address] [address] documented in this encounter Visit Diagnoses Not on filedocumented in this encounter
--- OUTSIDE RECORDS SUMMARY | 2024-04-18 22:10 | XMS_ITS | Encounter Summary ---
Author Organization [facility] Address [address] [place] [address] Care Team Providers Care Equipment Processor Name Role Phone Melissa Spears MD Primary Care Provider [phone] Encounter Details Date Type Department Care Team (Late st Contact Info) Description 06/12/2014 Results Only [facility] Laboratory Services - [facility] ([facility]) [address] [place], [place] [phone] Melissa Spears MD [address] [phone] Social History Tobacco Use Types [...] Diagnosis Comments PAP TEST- RESULT ONLY Routine 06/12/2014 0:00 EST documented in this encounter Results * PAP TEST- RESULT ONLY (06/12/2014 0:00 EST) Pathology Report: CYTOPATHOLOGY REPORT Reports generated via electronic interface contain original data; however they are lacking the format of the original report. Caution should be taken when reading/interpret ing unformatted reports. Name: ? HARLEEN REMY ? Accession #: ? [id number] : ? 1955 (Age: 58) ??F ?Collect Date: ? 06/12/2014 Location: ? [facility] ? Receive Date: ? 06/15/2014 Provider: ?MELISSA SPEARS MD Copy to: ? Specimen/Source: ?Pap Test, Source Not Provided, FRESSPrep Imaging System with manual evaluation Last Menstrual Period: ? 2011 Hormonal/Contrace ptive Status: ? Condoms ? SPECIMEN ADEQUACY ? Unsatisfactory for Evaluation, - insufficient numbers of squamous epithelial cells (less than 10% of expected cellularity) GENERAL CATEGORIZATION ? Specimen processed and examined, but unsatisfactory for evaluation of epithelial abnormality. ??Recommend repeat Pap test in 2-4 months as stated in ASCCP's 2012 Updated Consensus Guidelines. ? Document reviewed and electronically signed by: ? HELIO Hines([facility]) ? Report Date: ??06/23/2014 11:19 End of Report [facility] 06/12/2014 06/15/2014 Melissa Spears MD PATHOLOGY ORDERABLES [facility] [address] [place] [address] documented in this encounter Visit Diagnoses Not on filedocumented in this encounter Care Teams Equipment Processor Relationship Specialty Start Date End Date Melissa Spears MD [address] [place] [phone] PCP - General 07/03/12 documented as of this encounter
--- OUTSIDE RECORDS SUMMARY | 2024-04-18 22:10 | XMS_ITS | Encounter Summary ---
Author Organization [facility] Address [address] [place] [address] Care Team Providers Care Easement Worker Name Role Phone Unavailable Primary Care Provider Unavailabl e Encounter Details Date Type Department Care Team (Late st Contact Info) Description 05/01/2002 Results Only [facility] - Maple conversion [address] [place] [address] Melissa Spears MD [address] [place] [phone] Social History Tobacco Use Types Packs/Day Years Used Date Smoking Tobacco: Never Assessed Sex and Gender Information Value Date Recorded Sex Assigned at Not on file Gender Identity Not on file Sexual Orientation Not on file documented as of this encounter Plan of Treatment Not on file documented as of this encounter Procedures Procedure Name Priority Date/Time Associated Diagnosis Comments CYTOPATHOLOGY Routine 05/01/2002 0:00 EDT documented in this encounter Results * CYTOPATHOLOGY (05/01/2002 0:00 EDT) Pathology Report: CYTOPATHOLOGY REPORT Reports generated via electronic interface contain original data; however they are lacking the format of the original report. Caution should be taken when reading/interpreti ng unformatted reports. Name: ? HARLEEN REMY ? Accession #: ? [id number] : ? 1955 (Age: 46) ??F ?Collect Date: ? 05/01/2002 Location: ? [facility] ? Receive Date: ? 05/05/2002 Provider: ?MELISSA SPEARS MD Copy to: ? Specimen/Source: ?ThinPrep Pap Test, Cervix/Endocervix Last Menstrual Period: ? 04/21/02 Hormonal/Contracep tive Status: ? Condoms ? SPECIMEN ADEQUACY ? Satisfactory for Evaluation - transformation zone component present GENERAL CATEGORIZATION ? Negative for Intraepithelial Lesion or Malignancy ? Document reviewed and electronically signed by: ? HELIO Montaño(ASCP) ? Report Date: ??05/08/2002 08:54 End of Report DAIS[facility] DONAL[facility] 05/01/2002 05/05/2002 Melissa Spears MD PATHOLOGY ORDERABLES [facility] [address] [place] [address] documented in this encounter Visit Diagnoses Not on filedocumented in this encounter
--- OUTSIDE RECORDS SUMMARY | 2024-04-18 22:10 | XMS_ITS | Encounter Summary ---
[place] [address] Care Team Providers Care Internet Marketing Strategist Name Role Phone Unavailable Primary Care Provider Unavailabl e Encounter Details Date Type Department Care Team (Late st Contact Info) Description 06/16/2010 9:00 AM EST Office Visit [place] [address] Luke Laird MD [address] [place] [address] [address] [place], [place] [phone] Social History Tobacco Use Types Packs/Day Years [...]
--- OUTSIDE RECORDS SUMMARY | 2024-04-18 22:10 | XMS_ITS | Referral Summary ---
Author Organization [facility] Address [address] [place] [address] Care Team Providers Care Director Of Athletics Name Role Phone Melissa Burns MD Primary Care Provider [phone] Social History Tobacco Use Types Packs/Day Years Used Date Smoking Tobacco: Never Assessed Interpersonal Safety Answer Date Record ed Physically Hurt Never 02/29/2020 Verbally Threaten Not on file 02/29/2020 Sex and Gender Information Value Date Recorded Sex Assigned at Not on file Gender Identity Not on file Sexual Orientation Not on file Plan of Treatment Not on file Procedures Procedure Name Priority Date/Time Associated Diagnosis Comments HEPATITIS C AB W REFLEX TO HCV RNA BY PCR Routine 06/15/2021 9:00 EST from Last 3 Months or Most Recently Relevant to Health Maintenance Results * HEPATITIS C AB W REFLEX TO HCV RNA BY PCR (06/15/2021 9:00 EST) Hep C Antibody Negative Negative 06/16/2021 10:48 EST [facility] Blood VENOUS BLOOD / Unknown 06/15/2021 9:00 EST 06/15/2021 21:11 EST Provider Outr Resulting Lab CHEMISTRY & BLOOD GAS ORDERABLES [facility] [address] [place] [address] from Last 3 Months or Most Recently Relevant to Health Maintenance Care Teams Director Of Athletics Relationship Specialty Start Date End Date Melissa Burns MD [address] [place] [phone] [facility] - General 07/03/12
--- OUTSIDE RECORDS SUMMARY | 2024-04-18 22:10 | XMS_ITS | Encounter Summary ---
Author Organization [facility] Address [address] [place] [address] Care Team Providers Care Sheet Pile Hammer Operator Name Role Phone Melissa Burns MD Primary Care Provider Encounter Details Date Type Department Care Team (Latest Contact Info) Description 10/22/2017 10:14 EDT - 10/22/2017 23:59 EDT Hospital Encounter [address] [address] Unknown, Provider, Discharge Disposition: Home or Self Care Social History Tobacco Use Types Packs/Day Years Used Date Smoking Tobacco: Never Assessed Sex and Gender Information Value Date Recorded Sex Assigned at Not on file Gender Identity Not on file Sexual Orientation Not on file documented as of this encounter Discharge Disposition Disposition Code Departure Means Destination Home or Self [facility] documented in this encounter Plan of Treatment Not on file documented as of this encounter Visit Diagnoses Not on filedocumented in this encounter Care Teams Sheet Pile Hammer Operator Relationship Specialty Start Date End Date Melissa Burns MD [address] [place] [phone] PCP - General 07/03/12 documented as of this encounter
--- OUTSIDE RECORDS SUMMARY | 2024-04-18 22:10 | XMS_ITS | Clinical Summary ---
Author Organization [facility] Address [address] [place] [address] Care Team Providers Care Linoleum Layer Apprentice Name Role Phone Melissa Burns MD Primary Care Provider [phone] Social History Tobacco Use Types Packs/Day Years Used Date Smoking Tobacco: Never Assessed Interpersonal Safety Answer Date Record ed Physically Hurt Never 02/29/2020 Verbally Threaten Not on file 02/29/2020 Sex and Gender Information Value Date Recorded Sex Assigned at Not on file Gender Identity Not on file Sexual Orientation Not on file Plan of Treatment Health Maintenance Due Date Last Done Comments RSV Immunization ( o r 60+ Years) (1 - 1-dose 60+ series) 2017 Fall Risk Screening 2022 COVID-19 Vaccine ( season) 2023 Hepatitis C Screen Completed 06/15/2021 Procedures Procedure Name Priority Date/Time Associated Diagnosis Comments HEPATITIS C AB W REFLEX TO HCV RNA BY PCR Routine 06/15/2021 9:00 EST from Last 3 Months or Most Recently Relevant to Health Maintenance Results * HEPATITIS C AB W REFLEX TO HCV RNA BY PCR (06/15/2021 9:00 EST) Hep C Antibody Negative Negative 06/16/2021 10:48 EST [facility] Blood VENOUS BLOOD / Unknown 06/15/2021 9:00 EST 06/15/2021 21:11 EST Provider Outr Resulting Lab CHEMISTRY & BLOOD GAS ORDERABLES [facility] [address] [place] [address] from Last 3 Months or Most Recently Relevant to Health Maintenance Care Teams Linoleum Layer Apprentice Relationship Specialty Start Date End Date Melissa Burns MD [address] [place] [phone] PCP - General 07/03/12
--- OUTSIDE RECORDS SUMMARY | 2024-04-18 22:10 | XMS_ITS | Encounter Summary ---
Author Organization [facility] Address [address] [place] [address] Care Team Providers Care Registered Dental Hygienist Name Role Phone Unknown, Provider Primary Care Provider Encounter Details Date Type Department Care Team (Late st Contact Info) Description 07/01/[address] [facility] Laboratory Services - [facility] [address] [place] [phone] Omar Gee MD [address] [place] [address] Social History Tobacco Use Types Packs/Day Years Used Date Smoking Tobacco: Never Assessed Sex and Gender Information Value Date Recorded Sex Assigned at Not on file Gender Identity Not on file Sexual Orientation Not on file documented as of this encounter Plan of Treatment Not on file documented as of this encounter Procedures Procedure Name Priority Date/Time Associated Diagnosis Comments SURGICAL PATHOLOGY Routine 07/01/2012 0:00 EST documented in this encounter Results * SURGICAL PATHOLOGY (07/01/2012 0:00 EST) Pathology Report: SURGICAL PATHOLOGY REPORT Reports generated via electronic interface contain original data; however they are lacking the format of the original report. Caution should be taken when reading/interpreti ng unformatted reports. Name: ? HARLEEN REMY ? Accession #: ? [id number] ? : ? 1955 (Age: 56) ??F ? Collect Date: ? 07/01/2012 ? Location: ? [facility] ? Receive Date: ? 07/02/2012 ? Provider: OMAR GEE MD Copy to: RAY SPEARS MD ? Final Pathologic Diagnosis: A. ?Small bowel, duodenum, biopsy: ?1. ?? Duodenal mucosa with gastric heterotopia. ? 2. ?? Peptic duodenitis. B. ?? Esophagus, 38 cm, biopsy: ? 1. ?? Cardia-oxyntic mucosa with acute chronic inflammation and features of fundic-gland ?polyp. See comment. ? 2. ?? Adjoining squamous mucosa with reflux esophagitis and reactive change. Comment: ? Foci of cardia epithelium shows enlarge nuclei and scattered mitoses, in consideration of acute inflammatory background, these changes are likely reactive. No intestinal metaplasia noted (B). Document reviewed and electronically signed by: VINOD MICHELLE MD Report ??Date: 07/07/2012 13:21 By the signature above, the attending physician certifies that he/she has personally conducted a gross and/or microscopic examination of the described specimens and rendered or confirmed the above diagnosis. Specimen(s) Received: A. ?Duodenum B. ? Esophagus 38 cm Clinical History: ? Fe deficiency anemia Gross Description: ? Received in formalin labelled Harleen Remy and #1 duodenum are seven christopher-pink irregular soft tissue fragments ranging from 0.4 x 0.2 x 0.1 cm to 0.4 x 0.3 x 0.3 cm. ??The specimens are entirely submitted as (A1) through (A3). Received in formalin labelled Sandrita, Harleen and #2 esophagus 38 cm are four christopher-pink irregular soft tissue fragments ranging from 0.3 x 0.2 x 0.2 cm to 0.4 x 0.3 x 0.3 cm. ??The specimens are entirely submitted as (B1) and (B2). ??(Elvia Clark)/breezy End of Report [facility] 07/01/2012 07/02/2012 9:4 3 EST Omar Gee MD PATHOLOGY ORDERABLE S [facility] [address] [place] [address] documented in this encounter Visit Diagnoses Not on filedocumented in this encounter Care Teams Registered Dental Hygienist Relationship Specialty Start Date End Date Unknown, Provider, PCP - General 07/02/12 07/02/12 documented as of this encounter
--- OUTSIDE RECORDS SUMMARY | 2024-04-18 22:10 | XMS_ITS | Encounter Summary ---
Author Organization [facility] Address [address] [place] [address] Care Team Providers Care Element Setter Name Role Phone Melissa Spears MD Primary Care Provider [phone] Encounter Details Date Type Department Care Team (Late st Contact Info) Description 10/22/2017 Results Only [facility] [phone] Zoe Britton, [address] [place], [place] [phone] Social History Tobacco Use Types Packs/Day Years Used Date Smoking Tobacco: Never Assessed Sex and Gender Information Value Date Recorded Sex Assigned at Not on file Gender Identity Not on file Sexual Orientation Not on file documented as of this encounter Plan of Treatment Not on file documented as of this encounter Procedures Procedure Name Priority Date/Time Associated Diagnosis Comments SURGICAL PATHOLOGY Routine 10/22/2017 8:31 EDT documented in this encounter Results * SURGICAL PATHOLOGY (10/22/2017 8:31 EDT) Pathology Report: SURGICAL PATHOLOGY REPORT Reports generated via electronic interface contain original data; however they are lacking the format of the original report. Caution should be taken when reading/interpret ing unformatted reports. Name: ? HARLEEN REMY ? Accession #: ? [id number] ? : ? 1955 (Age: 61) ??F ? Collect Date: ? 10/22/2017 ? Location: ? [facility] ? Receive Date: ? 10/23/2017 ? Provider: ZOE BRITTON DO Copy to: MELISSA SPEARS MD ? Final Pathologic Diagnosis: A. ??SKIN OF NOSE, RIGHT DORSUM, SHAVE BIOPSY: - Melanocytic nevus, compound type. - Lesion extends to base of biopsy specimen. B. ??SKIN OF TEAR TROUGH, LEFT, SHAVE BIOPSY: - Sebaceous hyperplasia. ?? Document reviewed and electronically signed by: CHANTAL SINGH MD Report ??Date: 10/24/2017 14:12 By the signature above, the attending physician certifies that he/she has personally conducted a gross and/or microscopic examination of the described specimens and rendered or confirmed the above diagnosis. Specimen(s) Received: A. ??Right dorsum B. ??Left tear trough Clinical History: Atypical skin lesions; per Dr. Britton's office, site of specimen A is right dorsum of nose; clinical diagnosis code: ??D49.2 Gross Description: A. ?Received in formalin labelled with proper patient identification (initials L, T) and right dorsum is a 0.5 x 0.5 x 0.1 cm ovoid shave of granular yellow white skin. The margin is inked blue. The specimen is bisected and entirely submitted in A1. B. ?Received in formalin labelled with proper patient identification (initials L, T) and left tear trough is a 0.5 x 0.4 x 0.1 cm ovoid shave of granular yellow white skin. The margin is inked blue. The specimen is submitted in toto in B1. RODRIGUEZ Flores (ASCP) 10/23/2017 9:[address] [facility] 10/22/2017 8:31 EDT 10/23/2017 8:31 EDT Zoe Britton DO PATHOLOGY ORDER [facility] [address] [place] [address] documented in this encounter Visit Diagnoses Not on filedocumented in this encounter Care Teams Element Setter Relationship Specialty Start Date End Date Melissa Spears MD [address] [place] [phone] PCP - General 07/03/12 documented as of this encounter
--- OUTSIDE RECORDS SUMMARY | 2024-04-18 22:10 | XMS_ITS | Encounter Summary ---
Author Organization [facility] Address [address] [place] [address] Care Team Providers Care Classroom Teacher Name Role Phone Unavailable Primary Care Provider Unavailabl e Encounter Details Date Type Department Care Team (Late st Contact Info) Description 04/07/2009 Orders Only [facility] Laboratory Services - [facility] ([facility] [address] [place] [address] Melissa Spears MD [address] [facility] [address] [place] [phone] Social History Tobacco Use Types Packs/Day Years Used Date Smoking Tobacco: Never Assessed Sex and Gender Information Value Date Recorded Sex Assigned at Not on file Gender Identity Not on file Sexual Orientation Not on file documented as of this encounter Plan of Treatment Not on file documented as of this encounter Procedures Procedure Name Priority Date/Time Associated Diagnosis Comments CYTOPATHOLOGY Routine 04/07/2009 0:00 EDT documented in this encounter Results * CYTOPATHOLOGY (04/07/2009 0:00 EDT) Pathology Report: CYTOPATHOLOGY REPORT ? Reports generated via electronic interface contain original data; ? however they are lacking the format of the original report. ? Caution should be taken when reading/interpreti ng unformatted reports. ? Name: ? HARLEEN REMY ? Accession #: ? [id number] ? : ? 1955 (Age: 53) ??F ?Collect Date: ? 04/07/2009 ? Location: ? [facility] ? Receive Date: ? 04/08/2009 ? Provider: ?MELISSA SPEARS MD ? Copy to: ? Specimen/Source: ?Pap Test, Cervix/Endocervix, ThinPrep Imaging System ? with manual evaluation ? Last Menstrual Period: ? 08/27/09 ? Other: ? HPVA - HPV testing requested if ASC-US on the current ThinPrep Pap test. ? SPECIMEN ADEQUACY ? Satisfactory for Evaluation ? - transformation zone component present ? GENERAL CATEGORIZATION ? Negative for Intraepithelial Lesion or Malignancy ? Document reviewed and electronically signed by: ? Ana Luisa Acuña, SCT(ASCP) ? Report Date: ??04/14/2009 11:55 ? End of Report ? [facility] 04/07/2009 04/08/2009 Melissa Spears MD PATHOLOGY ORDERABLES [facility] [address] [place] [address] documented in this encounter Visit Diagnoses Not on filedocumented in this encounter
--- OUTSIDE RECORDS SUMMARY | 2024-04-18 22:10 | XMS_ITS | Encounter Summary ---
Author Organization [facility] Address [address] [place] [address] Care Team Providers Care Asset Card Clerk Name Role Phone Melissa Burns MD Primary Care Provider [phone] Encounter Details Date Type Department Care Team (Late st Contact Info) Description 06/15/2021 Lab Requisition [facility] Pathology & Laboratory Medicine - [address] [phone] Outr Resulting Lab, Provider Social History Tobacco [...] Procedure Name Priority Date/Time Associated Diagnosis Comments HIV 1/2 ANTIGEN AND ANTIBODY, 4TH GENERATION Routine 06/15/2021 9:00 EST documented in this encounter Results * HIV 1/2 ANTIGEN AND ANTIBODY, 4TH GENERATION (06/15/2021 9:00 EST) HIV 1 and 2 Antibody/p24 Antigen, 4th Generation Negative Negative 06/16/2021 11:14 EST [facility] Comment:If acute HIV-1 infec tion is suspected in a high risk patient, submit plasma specimen for HIV-1 RNA quantitation test. Blood VENOUS BLOOD / Unknown 06/15/2021 9:00 EST 06/15/2021 21:11 EST Narrative [facility] - 06/16/2021 11:14 EST Fourth Generation assay performed on the Siemens Firebaseaur XPT. Provider Outr Resulting Lab IMMUNOLOGY A ND SEROLOGY ORDERABLES Performing Organization Address City/State/[facility] Co de Phone Number [facility] [address] [place] [address] documented in this encounter Visit Diagnoses Not on filedocumented in this encounter Care Teams Asset Card Clerk Relationship Specialty Start Date End Date Melissa Burns MD [address] [place] [phone] PCP - General 07/03/12 documented as of this encounter
--- OUTSIDE RECORDS SUMMARY | 2024-04-18 22:10 | XMS_ITS | Encounter Summary ---
Author Organization [facility] Address [address] [place] [address] Care Team Providers Care Laser Printing Operator Name Role Phone Melissa Spears MD Primary Care Provider [phone] Encounter Details Date Type Department Care Team (Late st Contact Info) Description 08/09/2016 Results Only [facility] [phone] Melissa Spears MD [address] [phone] Social History Tobacco Use Types [...] Date/Time Associated Diagnosis Comments SURGICAL PATHOLOGY Routine 08/09/2016 8:12 EST documented in this encounter Results * SURGICAL PATHOLOGY (08/09/2016 8:12 EST) Pathology Report: SURGICAL PATHOLOGY REPORT Reports generated via electronic interface contain original data; however they are lacking the format of the original report. Caution should be taken when reading/interpret ing unformatted reports. Name: ? HARLEEN REMY ? Accession #: ? [id number] ? : ? 1955 (Age: 60) ??F ? Collect Date: ? 08/09/2016 ? Location: ? [facility] ? Receive Date: ? 08/11/2016 ? Provider: MELISSA SPEARS MD Copy to: ? Final Pathologic Diagnosis: SKIN OF BICEPS, LEFT UPPER, SHAVE BIOPSY: - Seborrheic keratosis. Document reviewed and electronically signed by: CHANTAL SINGH MD Report ??Date: 08/14/2016 14:09 By the signature above, the attending physician certifies that he/she has personally conducted a gross and/or microscopic examination of the described specimens and rendered or confirmed the above diagnosis. Specimen(s) Received: L upper biceps area shave biopsy Clinical History: Changing mole Gross Description: ? Received in formalin labelled with proper patient identification (initials L, T) and L upper biceps area is a shave biopsy of a christopher-pink verrucoid lesion (0.7 x 0.4 x 0.3 cm). The specimen is submitted entirely in 1. RODRIGUEZ Guevara ([facility]) 08/11/2016 8:55 AM End of Report [facility] 08/09/2016 8:12 EST 08/11/2016 8:12 EST Melissa Spears MD PATHOLOGY ORDERABLES [facility] [address] [place] [address] documented in this encounter Visit Diagnoses Not on filedocumented in this encounter Care Teams Laser Printing Operator Relationship Specialty Start Date End Date Melsisa Spears MD [address] [place] [phone] PCP - General 07/03/12 documented as of this encounter
--- OUTSIDE RECORDS SUMMARY | 2024-04-18 22:10 | XMS_ITS | Encounter Summary ---
Author Organization [facility] [place] [address] Care Team Providers Care Commissioned Police Officer Name Role Phone Melissa Burns MD Primary Care Provider [phone] Reason for Visit * Reason Comments Iron Deficiency Encounter Details Date Type Department Care Team (Late st Contact Info) Description 11/23/2010 1:00 PM EDT Follow-Up Hematology Oncology at [address] [phone] Luke Laird MD [address] [place] [address] [phone] Iron deficiency anemia (Primary Dx) Discharge Disposition: Home Social History Tobacco Use Types Packs/Day Years Used Date Smoking Tobacco: Former Sex and Gender Information Value Date Recorded Sex Assigned at Not on file Gender Identity Not on file Sexual Orientation Not on file documented as of this encounter Last Filed Vital Signs Vital Sign Reading [...] - - Body Mass Index - - documented in this encounter Progress Notes * Luke Laird MD - 11/23/2010 1:16 PM EDT DIAGNOSIS: Iron-deficiency anemia in the setting of heavy menstrual periods. SUBJECTIVE: Salma comes in today for followup. She tells me her periods have lightened up considerably. She has been taking the iron as prescribed and, other than having some leg achiness, feels like she is back to normal. Review of systems is otherwise negative, and her past medical history and social history are unchanged from when I saw her three months ago. Review of Systems Constitutional: Negative for fever, chills, activity change, fatigue and unexpected weight change. HENT: Negative for sore throat, mouth sores and trouble swallowing. Eyes: Negative. Respiratory: Negative for cough, shortness of breath and wheezing. Cardiovascular: Negative for chest pain, palpitations and leg swelling. Gastrointestinal: Negative for nausea, vomiting, abdominal pain, diarrhea, constipation and abdominal distention. Genitourinary: Negative for dysuria and difficulty urinating. Musculoskeletal: Negative. Skin: Negative. Neurological: Negative. Hematological: Negative for adenopathy. Physical Exam Constitutional: She is oriented to person, place, and time. She appears well- developed and well-nourished. HENT: Head: Normocephalic and atraumatic. Eyes: Conjunctivae and EOM are normal. Pupils are equal, round, and reactive to light. Neck: Neck supple. No JVD present. No thyromegaly present. Cardiovascular: Normal rate, regular rhythm and normal heart sounds. Pulmonary/Chest: Effort normal and breath sounds normal. No respiratory distress. She has no wheezes. She has no rales. Abdominal: She exhibits no distension and no mass. There is no hepatosplenomegaly. No tenderness. She has no rebound and no guarding. Lymphadenopathy: She has no cervical adenopathy. She has no axillary adenopathy. No inguinal adenopathy present. No supraclavicular adenopathy present. Neurological: She is alert and oriented to person, place, and time. No cranial nerve deficit. Coordination normal. Skin: Skin is warm and dry. No rash noted. Review of the patient's laboratory studies shows she has now gone back to normal. Ferritin is up to 39. Hemoglobin is up to 13 with hematocrit of 36.8. Mean cell volume is in the normal range at 87. Platelet count 223,000. White count 4.06 with a neutrophil count of 2.43. ASSESSMENT: The patient's iron deficiency has resolved. With her periods now being light again, I think she will probably be fine off of iron, so I have told her she can go ahead and stop that. She now knows how to take iron so that she gets good absorption and, if she needed it in the future, that would be fine, but I suspect that will not be the case. We will see her back on a p.r.n. basis. PLAN: Follow up p.r.n. documented in this encounter Plan of Treatment Not on file documented as of this encounter Visit Diagnoses Diagnosis Iron deficiency anemia- Primary Iron deficiency anemia, unspecified documented in this encounter Care Teams Commissioned Police Officer Relationship Specialty Start Date End Date Melissa Burns MD [address] [place] [address] PCP - General 06/21/10 documented as of this encounter
--- OUTSIDE RECORDS SUMMARY | 2024-04-18 22:10 | XMS_ITS | Encounter Summary ---
Author Organization [facility] Address [address] [place] [address] Care Team Providers Care Manager Of Internal Name Role Phone Melissa Burns MD Primary Care Provider [phone] Encounter Details Date Type Department Care Team (Latest Contact Info) Description 06/16/2021 Lab Requisition [facility] Pathology & Laboratory Medicine - [facility] [address] [place] [address] Melissa Burns MD [address] [place] [phone] Encounter for gynecological examination (general) (routine) without abnormal findings; Encounter for general adult medical examination without abnormal findings Social History Tobacco Use Types Packs/Day Years [...] Name Priority Date/Time Associated Diagnosis Comments PAP TEST Today 06/15/2021 8:30 EST Encounter for gynecological examination (general) (routine) without abnormal findings Encounter for general adult medical examination without abnormal findings HPV DNA DETECTION WITH GENOTYPING, PCR Today 06/15/2021 8:30 EST Encounter for gynecological examination (general) (routine) without abnormal findings Encounter for general adult medical examination without abnormal findings documented in this encounter Results * HUMAN PAPILLOMAVIRUS (HPV) DETECTION-HIGH RISK TYPES (06/15/2021 8:30 EST) HPV other High Risk types, PCR Negative Negative 06/28/2021 7:22 [facility] Comment:No E6 or E7 mRNA is detected from HPV types 16,18,31,33,35,39,45,51,52,56,58,59,66, and 68 by letterer mediated amplification. Papanicolaou smear specimen (specimen) CERVIX UTERI STRUCTURE / Unknown 06/15/2021 8:30 EST 06/24/2021 10:11 EST Melissa Burns MD MICROBIOLOGY - GENER AL ORDERABLES [facility] [address] [place] [address] * PAP TEST (06/15/2021 8:30 EST) Specimens A. Cervix and/or Endocervix , ThinPrep Imaging System with Manual Evaluation 06/28/2021 7:22 [facility] Specimen Adequacy Satisfactory for Evaluation - assessment of transformation zone component not applicable ( e.g. atrophy, vaginal sample, hysterectomy) Scant squamous epithelial component 06/28/2021 7:22 [facility] General Categorization Negative for intraepithelial lesion or malignancy 06/28/2021 7:22 [facility] Attestation . 06/28/2021 7:22 [facility] at 0722 Clinical History See below 06/28/20 7:22 [facility] HPV The result for the Human Papillomavirus (HPV) Detection-High Risk Types is Negative. No E6 or E7 mRNA is detected from HPV types 16,18,31,33,35,39 ,45,51,52,56,58,5 9,66, and 68 by letterer mediated amplification.Leatha ting was performed on specimen [id number] and was resulted on 06/28/2021 0714 EST by MOO, LAB INSTRUMENT RESULTS IN 06/28/2021 7:22 EST [facility] Performing Lab [facility] 06/28/2021 7:22 EST [facility] Scanned Images 06/28/2021 7:22 EST [facility] Papanicolaou smear specimen (specimen) CERVIX UTERI STRUCTURE / Unknown 06/15/2021 8:30 EST 06/16/2021 11:04 EST Melissa Burns MD PATHOLOGY ORDERABLES Performing Organization Address City/State/[facility] Co de Phone Number [facility] [address] [place] [address] documented in this encounter Visit Diagnoses Diagnosis Encounter for gynecological examination (general) (routine) without abnormal findings Encounter for general adult medical examination without abnormal findings Unspecified general medical examination documented in this encounter Care Teams Manager Of Internal Relationship Specialty Start Date End Date Melissa Burns MD [address] [place] [phone] PCP - General 07/03/12 documented as of this encounter
--- OUTSIDE RECORDS SUMMARY | 2024-04-18 22:10 | XMS_ITS | Encounter Summary ---
Author Organization [facility] Address [address] [place] [address] Care Team Providers Care Terrazzo Helper Name Role Phone Melissa Spears MD Primary Care Provider Encounter Details Date Type Department Care Team (Late st Contact Info) Description 06/14/2015 Results Only [facility] [phone] Melissa Spears MD [address] [phone] Social History Tobacco Use Types [...] Diagnosis Comments PAP TEST- RESULT ONLY Routine 06/14/2015 0:00 EST documented in this encounter Results * PAP TEST- RESULT ONLY (06/14/2015 0:00 EST) Pathology Report: CYTOPATHOLOGY REPORT Reports generated via electronic interface contain original data; however they are lacking the format of the original report. Caution should be taken when reading/interpreti ng unformatted reports. Name: ? HARLEEN REMY ? Accession #: ? [id number] ? : ? 1955 (Age: 59) ??F ?Collect Date: ? 06/14/2015 ? Location: ? [facility] ? Receive Date: ? 06/15/2015 ? Provider: MELISSA SPEARS MD Copy to: ? Final Report SPECIMEN ADEQUACY ? Satisfactory for Evaluation - transformation zone component present GENERAL CATEGORIZATION ? Negative for Intraepithelial Lesion or Malignancy ?? Last Menstrual Period: years Hormonal/Contracep tive status: None Specimen/Source: ??Pap Test, Cervix, ThinPrep Imaging System with manual evaluation Document reviewed and electronically signed by: ? Celia Kong, [place](ASCP) ? Report ??Date: 06/17/2015 13:19 HPV with Pap Test ? Date Ordered: ? 06/17/2015 ? Status: ?? Signed Out ?Date Complete: ? 06/21/2015 ? By: ??System Interface ? Date Reported: ? 06/21/2015 ? Interpretation RESULT: Negative for HPV. No E6 or E7 mRNA is detected from HPV types 16,18,31,33,35, 39,45,51,52,56,58, 59,66, and 68 by plant senior manager mediated amplification. Comments Document reviewed and electronically signed by: ? System Interface ? Report date: 06/21/2015 By the signature above, the attending physician certifies that he/she has personally conducted a gross and/or microscopic examination of the described specimens and rendered or confirmed the above diagnosis. End of Report [facility] 06/14/2015 06/15/2015 Melissa Spears MD PATHOLOGY ORDERABLES [facility] [address] [place] [address] documented in this encounter Visit Diagnoses Not on filedocumented in this encounter Care Teams Terrazzo Helper Relationship Specialty Start Date End Date Melissa Spears MD [address] [place] [phone] PCP - General 07/03/12 documented as of this encounter
--- OUTSIDE RECORDS SUMMARY | 2024-04-18 22:10 | XMS_ITS | Encounter Summary ---
Author Organization [facility] Address [address] [place] [address] Care Team Providers Care Geomagnetist Name Role Phone Unavailable Primary Care Provider Unavailabl e Encounter Details Date Type Department Care Team (Late st Contact Info) Description 03/28/2007 Results Only [facility] [address] [place] [address] Melissa Spears MD [address] [place] [phone] Social History Tobacco Use Types Packs/Day Years Used Date Smoking Tobacco: Never Assessed Sex and Gender Information Value Date Recorded Sex Assigned at Not on file Gender Identity Not on file Sexual Orientation Not on file documented as of this encounter Plan of Treatment Not on file documented as of this encounter Procedures Procedure Name Priority Date/Time Associated Diagnosis Comments CYTOPATHOLOGY Routine 03/28/2007 0:00 EDT documented in this encounter Results * CYTOPATHOLOGY (03/28/2007 0:00 EDT) Pathology Report: CYTOPATHOLOGY REPORT Reports generated via electronic interface contain original data; however they are lacking the format of the original report. Caution should be taken when reading/interpreti ng unformatted reports. Name: ? HARLEEN REMY ? Accession #: ? [id number] : ? 1955 (Age: 51) ??F ?Collect Date: ? 03/28/2007 Location: ? [facility] ? Receive Date: ? 04/02/2007 Provider: ?MELISSA SPEARS MD Copy to: ? Specimen/Source: ?ThinPrep Pap Test, Cervix/Endocervix, processed on [employer] ThinPrep Imaging System, with manual evaluation Last Menstrual Period: ? 03/14/07 Other: ? HPVA - HPV testing requested if ASC-US on the current ThinPrep Pap test. ? SPECIMEN ADEQUACY ? Satisfactory for Evaluation - transformation zone component present - scant squamous epithelial component secondary to excessive blood GENERAL CATEGORIZATION ? Negative for Intraepithelial Lesion or Malignancy ? Document reviewed and electronically signed by: ? DIDIER Keating(ASCP) ? Report Date: ??04/05/2007 09:58 End of Report [facility] DONAL[facility] 03/28/2007 04/02/2007 Melissa Spears MD PATHOLOGY ORDERABLES Performing Organization Address City/State/[facility] Co de Phone Number [facility] DONALD [address] [place] [address] documented in this encounter Visit Diagnoses Not on filedocumented in this encounter
--- NOTE | 2024-04-18 23:11 | W.ED.GENAD ---
Discharge Plan Disposition Patient Disposition: Home Condition: Good Discharge Details Clinical Impression: Diverticulitis Primary Care Provider: Melissa Burns ED Provider: Jose D Garcia Home Meds and New Rx's Prescriptions: New amoxicillin-pot clavulanate 875-125 mg tablet 1 tab PO BID 7 Days Qty: 14 0RF No Action lisinopril 5 mg tablet 5 mg PO DAILY metoprolol succinate 25 mg tablet extended release 24 hr 25 mg PO DAILY omeprazole 40 mg capsule,delayed release(DR/EC) 40 mg PO DAILY ibuprofen 200 mg tablet 200 mg PO Q6H PRN ibuprofen 200 mg Tablet 200 - 600 mg PO QID PRN Discharge Instructions Instructions: Diverticulitis Additional Instructions: At this time you have evidence of diverticulitis. Please take the antibiotic as directed. He has been sent to your pharmacy on file. Please stick with a liquid diet for the next 48 to 72 hours and then transition to an Easy soft diet. Please take Tylenol and Motrin as needed for pain. If you notice any worsening of your symptoms, or any new symptoms such as vomiting, diarrhea, fever, chills, shortness of breath, chest pain, numbness, weakness, or fainting , please return immediately to the emergency department for reevaluation. Please follow up with your primary care provider as soon as possible for reassessment and reevaluation. As always, it was a pleasure participating in your medical care today. Referrals: Melissa Burns MD [Primary Care Provider] - Discharge Data Discharge Date/Time-TO BE ENTERED AT DEPARTURE: 04/19/24 02:14 HPI <RODRIGUEZ Quintana - Last Filed: 04/22/24 08:09> General Date/Time Provider Initiated Documentation: 04/18/24 21:31. HPI Narrative: This 68-year-old female presents on left sided abdominal pain that started at 10 AM today. Patient denies any fever or chills. She states she has had nausea without vomiting. She states she has had some loose stools. Denies any blood in stool. Denies any chest pain or shortness of breath. Denies any trauma. Denies any urinary component. States that she has had similar symptoms in the past with diverticulitis. Related Data Home Medications ?Medication ?Instructions ?Recorded ?Confirmed ibuprofen 200 mg tablet 200 - 600 mg PO QID PRN 05/13/18 04/18/24 ibuprofen 200 mg tablet 200 mg PO Q6H PRN 08/23/21 04/18/24 omeprazole 40 mg capsule,delayed 40 mg PO DAILY 08/23/21 04/18/24 release lisinopril 5 mg tablet 5 mg PO DAILY 09/07/21 04/18/24 metoprolol succinate 25 mg 25 mg PO DAILY 09/07/21 04/18/24 tablet,extended release 24 hr amoxicillin 875 mg-potassium 1 tab PO BID 7 days #14 tabs 04/19/24 clavulanate 125 mg tablet Previous Rx's ?Medication ?Instructions ?Recorded amoxicillin 875 mg-potassium 1 tab PO BID 7 days #14 tabs 04/19/24 clavulanate 125 mg tablet Allergies Allergy/AdvReac Type Severity Reaction Status Date / Time No Known Allergies Allergy Verified 09/07/21 12:45 General Stated Complaint: Abd Prob ABDULLAHI: 3 Exam <RODRIGUEZ Quintana Last Filed: 04/22/24 08:09> Narrative Exam Narrative: Patient is afebrile, she is exquisitely tender in the left lower quadrant, she has no CVA tenderness no abdominal bruit or pulsatile mass, lungs clear to auscultation, cardiac rate rhythm regular, alert and oriented x 4 Course <RODRIGUEZ Quintana Last Filed: 04/22/24 08:09> Vital Signs Vital signs: Vital Signs Pulse 89 04/18/24 21:35 Respiratory Rate 16 04/18/24 21:35 Blood Pressure 172/87 H 04/18/24 21:35 Pulse Oximetry 96 04/18/24 21:35 Temperature 37.5 C 04/18/24 21:39 Temperature Source Temporal Artery Scan 04/18/24 21:39 Pulse 89 04/18/24 21:39 Respiratory Rate 16 04/18/24 21:39 Respiratory Effort Normal, Non-Labored 04/18/24 21:39 Blood Pressure 172/87 H 04/18/24 21:39 Blood Pressure Position Sitting 04/18/24 21:39 Pulse Oximetry 96 04/18/24 21:39 Oxygen Delivery Method Room Air 04/18/24 21:39 Oxygen Flow Rate 0 04/18/24 21:39 Pain Level 6 04/18/24 21:39 Lab/Test Results Lab/Test Results: Laboratory Tests Range/Units 04/18/24 21:40 WBC (4.4-10.8) 10^3/uL 11.47 H RBC (3.93-5.22) 10^6/uL 4.42 Hgb (11.2-15.7) g/dL 13.2 Hct (36.0-46.0) % 38.3 MCV (80-95) fL 87 MCH (27.0-33.0) pg 29.9 MCHC (32.0-36.0) % 34.5 RDW (11.7-14.6) % 12.2 Plt Count (130-400) 10^3/uL 234 MPV (8.0-11.0) fL 9.9 Immature Gran % % 0.3 Neutrophils % % 75.9 Lymphocytes % % 14.9 Monocytes % % 8.3 Eosinophils % % 0.3 Basophils % % 0.3 Nucleated RBC % (0.0-0.3) % 0.0 Absolute Neutrophils (1.2-6.7) 10^3/uL 8.71 H Absolute Lymphocytes (1.2-3.4) 10^3/uL 1.71 Absolute Monocytes (0.1-0.8) 10^3/uL 0.95 H Absolute Eosinophils (0.0-0.7) 10^3/uL 0.03 Absolute Basophils (0.0-0.2) 10^3/uL 0.03 Sodium (136-145) mmol/L 137 Potassium (3.5-5.1) mmol/L 4.1 Chloride (98-107) mmol/L 102 Carbon Dioxide (21.0-32.0) mmol/L 25.5 Anion Gap (3-11) mmol/L 9.5 BUN (7-18) mg/dL 14 Creatinine (0.55-1.02) mg/dL 0.9 Est GFR (CKD-EPI 2020) (mL/min/1.73m2) 70.51 Glucose (74-106) mg/dL 100 Calcium (8.5-10.1) mg/dL 9.3 Total Bilirubin (0.2-1.0) mg/dL 0.70 AST (15-37) U/L 35 ALT (14-59) U/L 50 Alkaline Phosphatase (46-116) U/L 122 H Total Protein (6.4-8.2) g/dL 8.0 Albumin (3.4-5.0) g/dL 3.9 Lipase (16-77) U/L 33 Medical Decision Making <RODRIGUEZ Quintana - Last Filed: 04/22/24 08:09> 68-year-old female presenting with left lower quadrant tenderness, pending CT abdomen and pelvis. Diagnostic labs are reassuring, CMP within normal limits, mild leukocytosis at 11,000, urinalysis pending at this time. Will transition care pending CT abdomen and pelvis and urinalysis. Improved symptoms after morphine and Zofran. Quality:[facility] Health Related Social Needs: No Data to Display <Jose D Garcia DO - Last Filed: 04/19/24 02:07> 68-year-old female presenting with left lower quadrant tenderness, pending CT abdomen and pelvis. Diagnostic labs are reassuring, CMP within normal limits, mild leukocytosis at 11,000, urinalysis pending at this time. Will transition care pending CT abdomen and pelvis and urinalysis. Improved symptoms after morphine and Zofran. Dr. Garcia's documentation Patient was signed out to me by my colleague Ángela Tam. Please refer to HPI physical exam assessment and plan. At time of signout we are pending CT scan. CT scan shows evidence of diverticulitis without evidence of perforation or abscess. She has mild white count, mild left shift, normal renal function. Urinalysis is relatively benign. Symptoms are concerning for diverticulitis clinically. No evidence of sepsis or septic shock. Will give Unasyn here, and a prescription for Augmentin for home. Patient's pain is otherwise well-controlled. Patient stable for discharge. Discussed red flags for which to return. I have extensively reviewed the treatment plan and discharge instructions with the patient. I have addressed all patient concerns at this time. The patient was made aware of what symptoms to monitor for that would warrant a return to the emergency department. Discussed the plan with the patient, they demonstrate verbal understanding and agreement with our assessment and plan at this time. The documentation in this chart was dictated using [facility] dictation software. Please excuse any dictation errors. FINDINGS: Liver: There is mild diffuse fatty infiltration of the liver. Gallbladder and biliary ducts: Normal. No calcified stones. No ductal dilation. Pancreas: Normal. No ductal dilation. Spleen: Normal. No splenomegaly. Adrenal glands: Normal. No mass. Kidneys and ureters: Tiny renal hypodensities identified too small to accurately characterize but likely representing Bosniak type 1 renal cysts. No further imaging follow-up is necessary. Stomach and bowel: Edematous changes and inflammatory changes are identified adjacent to a loop of sigmoid colon with multiple diverticula noted. Findings are consistent with the diagnosis of acute diverticulitis. Appendix: Appendix is not clearly identified. Intraperitoneal space: Small amount of free fluid is identified in the pelvis. Vasculature: Unremarkable. No abdominal aortic aneurysm. Lymph nodes: Unremarkable. No enlarged lymph nodes. Urinary bladder: Unremarkable as visualized. Reproductive: Unremarkable as visualized. Bones/joints: Unremarkable. No acute fracture. Soft tissues: Small umbilical hernia is noted. IMPRESSION: 1. Findings consistent with acute diverticulitis adjacent to a loop of sigmoid colon. 2. Small amount of free fluid identified in the pelvis. 3. Small umbilical hernia. 4. Fatty infiltration of the liver. Thank you for allowing us to participate in the care of your patient. Dictated and Authenticated by: Lucien Fournier MD 04/19/2024 1:17 AM Eastern Time ([place] & [place]) [facility] <RODRIGUEZ Quintana - Last Filed: 04/22/24 08:09> All Active Problems (Updated 04/19/24 @ 02:06 by Jose D Garcia DO) Diverticulitis (Chronic) Referred otalgia of left ear (Acute) Lactose intolerance (Acute) Mitral valve regurgitation (Chronic) Left ventricular hypertrophy (Acute) Hypertension, essential, benign (Acute) Cervical lymphadenopathy (Acute) Left ear pain (Acute) Left facial pain (Acute) Diverticulosis large intestine w/o perforation or abscess w/o bleeding (Acute) Encounter for screening colonoscopy (Acute) Neoplasm of unspecified nature of bone, soft tissue, 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/17) Medical History Abdominal pain, epigastric Chronic abdominal pain Claustrophobia Diverticulitis Dyspareunia in female Elevated blood pressure reading GERD (gastroesophageal reflux disease) Herpes labialis Hx of diverticulitis of colon Palpitations Surgical History Colonoscopy - IV Sedation 2008-nl H/O section x3 S/P appendectomy Family History Mother Heart disease Sister Thyroid condition Autoimmune liver disease Brother Thyroid condition Diabetes Brother Diabetes Social History Smoking/Tobacco Use Status: Former Tobacco Use Quit Date: 07/30/82 Pack-years: 8 Smoking risk assessment performed?: Yes Alcohol Intake: never Drug use: Never Substance use type: does not use Household members: spouse Housing: house Number of Children: 5 current occupation: [employer] Pets and animals: Yes Pets and animals: cat(s) and dog(s) What is your relationship status?: Panel score (0-1 are the most socially isolated patients): 1 Seatbelt use: always Do you feel safe in your relationship?: Yes Sign Out <RODRIGUEZ Quintana - Last Filed: 04/22/24 08:09> Sign Out Data: Sign Out Comment: pending ct, urinalysis, and dispo Last updated by Ángela Tam PA at 04/18/24 23:33
[2024-04-18] MEDS: LORazepam 2 MG/ML VIAL (23:53)
[2024-04-19] MEDS: Normal Saline - Diluent 50 ML VIAL IJ (00:03)
[2024-04-19] MEDS: Omnipaque 350 MG/ML 100 ML BTL IJ (00:03)
[2024-04-19 00:17] LABS: Bilirubin Negative (Negative); Blood Negative (Negative); Clarity Clear (Clear); Glucose Negative (Negative); Ketones Negative (Negative); Leukocyte Esterase Trace (Negative); Nitrite Negative (Negative); Urobilinogen 0.2 mg/dL (Up to 0.2); pH 7.5 (5-8)
[2024-04-19 00:18] LABS: Bacteria Rare HPF (Negative); C & S Indicated? No; Casts Negative LPF (Negative); Crystals Negative HPF (Negative); Epithelial Cells Rare HPF (Negative); Mucus Negative (Negative); RBC 0-2 HPF (0-2); WBC 0-2 HPF (0-5)
--- NOTE | 2024-04-19 01:18 | DI.VRAD_ITS ---
PROCEDURE INFORMATION: Exam: CT Abdomen And Pelvis With Contrast Exam date and time: 04/18/2024 11:52 PM Age: 68 years old Clinical indication: Abdominal pain; Other: Llq pain, HX of divertic TECHNIQUE: Imaging protocol: Computed tomography of the abdomen and pelvis with contrast. Contrast material: OMNI 350; Contrast volume: 100 ml; Contrast route: INTRAVENOUS (IV); COMPARISON: CR ABDOMEN FLAT PLATE 02/26/2018 2:58 PM FINDINGS: Liver: There is mild diffuse fatty infiltration of the liver. Gallbladder and biliary ducts: Normal. No calcified stones. No ductal dilation. Pancreas: Normal. No ductal dilation. Spleen: Normal. No splenomegaly. Adrenal glands: Normal. No mass. Kidneys and ureters: Tiny renal hypodensities identified too small to accurately characterize but likely representing Bosniak type 1 renal cysts. No further imaging follow-up is necessary. Stomach and bowel: Edematous changes and inflammatory changes are identified adjacent to a loop of sigmoid colon with multiple diverticula noted. Findings are consistent with the diagnosis of acute diverticulitis. Appendix: Appendix is not clearly identified. Intraperitoneal space: Small amount of free fluid is identified in the pelvis. Vasculature: Unremarkable. No abdominal aortic aneurysm. Lymph nodes: Unremarkable. No enlarged lymph nodes. Urinary bladder: Unremarkable as visualized. Reproductive: Unremarkable as visualized. Bones/joints: Unremarkable. No acute fracture. Soft tissues: Small umbilical hernia is noted. IMPRESSION: 1. Findings consistent with acute diverticulitis adjacent to a loop of sigmoid colon. 2. Small amount of free fluid identified in the pelvis. 3. Small umbilical hernia. 4. Fatty infiltration of the liver. Dictated and Authenticated by: Lucien Fournier MD. Ordering:FELIPE Motta MD
[2024-04-19] MEDS: AMPICILLIN/SULBACTAM 3 GM in Normal Saline 100 ML IVPB (01:34)
[2024-04-19 02:12] VITALS: BP 162/82; PULSE 78; RESP 16; TEMP 37.3; O2SAT 98
== END 2024-04-19 02:14 | disposition home or self-care (01) ==
PROVIDERS: Physician Assistant; Emergency Provider Student in an Organized Health Care Education/Training Program; PCP Family Medicine
DX: K57.32 Diverticulitis of large intestine without perforation or abscess without bleeding (principal); I10 Essential (primary) hypertension; Z87.891 Personal history of nicotine dependence
CPT/HCPCS: 36415; 80053; 83690; 96361; 96365; 96367; 99285; 74177; 81003; 81015; 85025; 99284; J0131; J0295; J2060; J3490

== ENCOUNTER 2024-10-20 15:13 | Outpatient (REF) | payer MEDICARE, BC, SELFPAY ==
[2024-10-20 21:20] LABS: HCT 38.9 % (36.0-46.0); HGB 12.7 g/dL (11.2-15.7); MCH 29.1 pg (27.0-33.0); MCHC 32.6 % (32.0-36.0); MCV 89 fL (80-95); MPV 10.6 fL (8.0-11.0); Platelet Count 266 10^3/uL (130-400); RBC 4.37 10^6/uL (3.93-5.22); RDW 12.4 % (11.7-14.6); RDW-SD 40.5 fL; WBC 4.88 10^3/uL (4.4-10.8)
[2024-10-20 21:57] LABS: ALT 30 U/L (14-59); AST 25 U/L (15-37); Alkaline Phosphatase 109 U/L (46-116); Anion Gap 7.8 mmol/L (3-11); BUN 16 mg/dL (7-18); Bilirubin, Total 0.5 mg/dL (0.2-1.0); CO2 28.2 mmol/L (21.0-32.0); CREATININE 0.8 mg/dL (0.55-1.02); Calcium 9.3 mg/dL (8.5-10.1); Chloride 107 mmol/L (98-107); Estimated GFR 81.21 (mL/min/1.73m2); Glucose 92 mg/dL (74-106); Potassium 4.3 mmol/L (3.5-5.1); Sodium 143 mmol/L (136-145); Total Protein 7.7 g/dL (6.4-8.2); Vitamin B12 350 pg/mL (193-986)
== END 2024-10-20 15:14 | disposition home or self-care (01) ==
LOC: NCHCN 15:13
PROVIDERS: PCP Family Medicine; Visit Provider Family Medicine
DX: K21.9 Gastro-esophageal reflux disease without esophagitis (principal)
CPT/HCPCS: 80053; 85027; 82607

== ENCOUNTER → 2024-11-13 13:43 | Outpatient (BNVA) | payer MEDICARE, BC, SELFPAY | PROVIDERS: PCP Family Medicine; Referring Provider Family Medicine; Visit Provider Physical Therapy Assistant | DX: K21.9 Gastro-esophageal reflux disease without esophagitis (principal) | CPT/HCPCS: 99214 ==

== ENCOUNTER 2024-12-10 06:56 | Day surgery (SDC) | payer MEDICARE, BC, SELFPAY ==
[2024-12-10 07:00] VITALS: BP 141/90; PULSE 93; RESP 16; TEMP 36.2; O2SAT 97
[2024-12-10] MEDS: Lactated Ringers 1,000 ML 80 ML IV (07:16)
--- NOTE | 2024-12-10 07:26 | ANES.PREOP_ITS ---
General Info Date of Service Date Performed: 12/10/24 Height: 5 ft 6 in Weight: 77.5 kg Body Mass Index (BMI): 27.6 Surgical Procedure: Operation Date: 12/10/24 08:20 Proposed Procedure Side Surgeon p Gastroscopy Christopher Rubio MD Meds Allergies and Home Medications Allergies Allergy/AdvReac Type Severity Reaction Status Date / Time No Known Allergies Allergy Verified 12/10/24 07:08 Home Medication ?Medication ?Instructions ?Recorded lisinopril 5 mg tablet 5 mg PO DAILY 09/07/21 metoprolol succinate 25 mg 25 mg PO DAILY 09/07/21 tablet,extended release 24 hr omeprazole 40 mg capsule,delayed 20 mg PO DAILY 11/03/24 release valacyclovir 1 gram tablet 2,000 mg PO BID 11/03/24 Current Visit Medications: Current Medications Generic Name Dose Route Start Last Admin Trade Name Freq PRN Reason Stop Dose Admin Ringer's Solution 1,000 mls @ 80 mls/hr 12/10/24 06:00 12/10/24 07:16 IV 12/10/24 23:59 80 mls/hr INFUSION CATHIE Administration IV Miscellaneous Supplies 1 each 12/10/24 06:00 Iv Access IV 12/10/24 23:59 DIRECTED CATHIE Sodium Chloride 0 ml 12/10/24 06:00 Normal Saline Flush 10 Ml Syr IV 12/10/24 23:59 PRN PRN Sodium Chloride 0 ml 12/10/24 06:00 Normal Saline 10 Ml Vial IJ 12/10/24 23:59 DIRECTED PRN Sterile Water 0 ml 12/10/24 06:00 Water,Injection,Sterile 10 Ml Vial IJ 12/10/24 23:59 DIRECTED PRN PFSH Active Problems Active Problems: Problem Status Onset Code Referred otalgia of left ear Acute H92.02 Lactose intolerance Acute E73.9 Mitral valve regurgitation Chronic I34.0 Left ventricular hypertrophy Acute I51.7 Hypertension, essential, benign Acute I10 Cervical lymphadenopathy Acute R59.0 Left ear pain Acute H92.02 Left facial pain Acute R51 Diverticulosis large intestine w/o perforation or abscess w/o bleeding Acute K57.30 Encounter for screening colonoscopy Acute 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 Did not tolarate pantoprazole, tolerates omeprazole S/P appendectomy H/O section x3 Colonoscopy - IV Sedation 2007-nl Tobacco Smoking/Tobacco Use Status: Former Tobacco Use Passive smoking exposure: No Alcohol Alcohol Intake: never Substance Use Substance use: Never Substance use type: does not use Vital Signs and Lab Results Vital Signs Most Recent Vital Signs in EMR: Most Recent Vital Signs Temp Pulse Resp BP Pulse Ox 36.2 C L 93 H 16 141/90 H 97 12/10/24 07:00 12/10/24 07:00 12/10/24 07:00 12/10/24 07:00 12/10/24 07:00 Lab Results Blood Type / Crossmatch: No Data to Display Complete Blood Count: No Data to Display Complete Metabolic Panel: No Data to Display Liver Function Panel: No Data to Display Coagulation Panel: No Data to Display Cardiac Panel: No Data to Display Arterial Blood Gas: No Data to Display Venous Blood Gas: No Data to Display Pancreas Panel: No Data to Display Thyroid Panel: No Data to Display Infectious Disease: No Data to Display Blood Cultures: No Data to Display Toxicology Panel: No Data to Display Imaging and Studies Imaging and Studies Study information below may be from another EMR and interpreted by another provider. Please see original notes in EMR for more complete details. Stress Test Summary: Patient Name: Salma eRmy Unit #: [id number] Loc: DI Ordering Provider: Jeniffer Fierro Status: [facility] Primary Care Provider: Melissa Burns M.D. Date of Exam: 09/25/23 Sex: F Admission Date: 09/25/23 : 1955 Age: 67 APPROVED REPORT Exam: Exercise Treadmill Patient Location: Out-Patient Room/Bed: Stress Nurse: Piero Loja RN Ordering Provider:JENIFFER FIERRO, Contact Number: BMI: 25.49 Baseline Rhythm: Sinus Rhythm Comment: SR-ST Indications: Dyspnea on exertion. Medical History Medical History: GERD, MVR, LVH, HTN. Cardiac Medications: Metoprolol, Lisinopril. Allergies: No known drug allergies Cardiac Risk Factors: HTN, MVR. Pretest Chest Pain Characteristics: No chest pain Exercise History: Indeterminate Lung Sounds: Clear to auscultation Heart Sounds: Regular Stress Test Details Test: Exercise stress was performed using a manual protocol. Rest Stress HR Resting HR Supine: 94 bpmMax Heart Rate (APMHR): 155 bpm Resting HR Standin bpmTarget HR (85% APMHR): 132 bpm Max HR Achieved: 160 bpm % of APMHR: 103 Recovery HR: 93 bpm HR response to stress: Normal HR response to stress BP Resting BP Supine: 136/72 mmHg Resting BP Standin/84 mmHg Max BP: 150/84 mmHg Recovery BP: 114/78 mmHg BP response to stress: Normal blood pressure response to stress. ECG Resting ECG: Sinus Rhythm Ectopy: none Stress ECG: Sinus Tachycardia ST Change: No significant ST segment changes noted Arrhythmia: None Recovery ECG: Sinus Rhythm Recovery ST Change: No significant ST segment changes noted Recovery Arrhythmia: None Clinical Reason for Termination: Target HR Achieved Stress Symptoms: None Exercise duration: 4 min07 sec Highest Stage Reached: Stage 2: 2.5 mph at 12% grade. Exercise capacity: 7 METs Angina Score: None Mehta Treadmill Score: 6 Rate Pressure Product: [id number] Stress ECG Conclusion 1. Electrocardiogram was normal limits 2. Patient exercised on Dustin protocol and completed a workload of 7 METS 3. Normal heart rate and blood pressure response to exercise. Patient achieved greater than 100% of predicted heart rate for age 4. There was no electrocardiographic evidence of myocardial ischemia 5. There were no dysrhythmias 6. Resting echocardiogram showed an ejection fraction of 65% with normal wall motion. Postexercise echocardiogram ejection fraction greater than 80% with augmented contractility of all segments 7. There was no echocardiographic evidence of myocardial ischemia Mehta Treadmill Score is 6 which is Low risk. Stress Test Summary STAGETime (mins)Speed (mph)Grade (%)[id number]/72 [id number]/84 [id number] 1 min [id number] 3 min [id number] 6 min [id number]/78 When staff went to start test, the treadmill was not communicating with the computer and did not start. Manual use of the treadmill was done to complete test and in manual mode the speeds and inclines of a standard dustin protocol were used. Patient began truly exercising at 3:22 seconds, exercised for 4 minutes (1 minute into stage 2) when she hit her 100% max heart rate. At max heart rate the test was terminated and patient transitioned directly to [facility] for post test echo images. Ordered By: Jeniffer Fierro CC: Dictated By: Henny Walker M.D. 09/25/23 1451 <Electronically signed by Henny Walker M.D. in OV> 09/25/23 1456 Transcribed By: Henny Walker MD 09/25/231450 This is privileged, confidential information intended only for the provider named. Any use or distribution by any person other than this provider is strictly prohibited. If you receive this report in error, please notify us immediately at [phone] and return the original report to us at the address above. Thank-you. Echocardiogram Summary: Patient Name: Salma Remy Unit #: [id number] Loc: DI Ordering Provider: Melissa Burns M.D. Status: [facility] Primary Care Provider: Melissa Burns M.D. Date of Exam: 11/14/22 Sex: F Admission Date: 11/14/22 : 1955 Age: 66 APPROVED REPORT EXAM: Comprehensive 2D, Doppler, and color-flow Echocardiogram Patient Location: Out-Patient Inlayer Silver: Lex Silviano, RDMS, RVT Indications: mitral valve regurgitation Conclusion Normal left ventricular wall thickness and chamber size. Ejection fraction is greater than 70%. Wall motion is normal Normal right ventricular size and systolic function Both atria are normal in size There are no structural valvular abnormalities There is mild mitral regurgitation Estimated right ventricular systolic pressure is 18 mmHg Wall motion Left Ventricle The left ventricle is normal size. The left ventricular systolic function is normal. The left ventricular ejection fraction is within the normal range. There is normal left ventricular wall thickness. There is normal LV segmental wall motion. There is no ventricular septal defect visualized. LVEF is >70%. Right Ventricle The right ventricle is normal size. The right ventricular systolic function is normal. The RVSP is 18.0 mmHg. Atria The left atrium size is normal. The right atrium size is normal. The interatrial septum is intact with no evidence for an atrial septal defect. Aortic Valve The aortic valve is normal in structure. Aortic valve is trileaflet. There is no aortic valvular stenosis. No aortic regurgitation is present. Mitral Valve The mitral valve is normal in structure. No evidence of mitral valve stenosis. Mild mitral regurgitation. Tricuspid Valve The tricuspid valve is normal in structure. There is no tricuspid valve stenosis. Trace tricuspid regurgitation. Pulmonic Valve The pulmonary valve is normal in structure. There is no pulmonic valvular stenosis. There is no pulmonic valvular regurgitation. Great Vessels The aortic root is normal in size. The ascending aorta is normal IVC is normal in size and collapses >50% with inspiration. Pericardium There is no pericardial effusion. 2D Dimensions IVSD d PLAX 0.79 cm F: 0.6-1.0LV Vol A2C d MOD 51.4 mL LVPW d PLAX 0.87 cm F: 0.6 - 1.0LV Vol A4C d MOD 74.3 mL LVID d PLAX 4.23 cm F: 3.8 - 5.2LA vol/ BSA A4C s A-L29.6 mL/m2 LVDs 2.55 cm F: 2.2 - 3.5LA Area A4C s MOD 18.05 cm2 Ao Root d 2.93 cm F: 2.7 - 3.3LV EF A4C MOD 73.2 % Ao Asc Diam d 3.29 cm F: 2.3 - 3.1LV EF A2C MOD 75.2 % LV EF Teichholz 69.9 %LV EF Biplane MOD 73.8 % LVEF (Stoddard's)73.82 % F: 54 - 74SV45.94 mL LV Twrehw96.99 mL F: 46 - 106SV Index24.92 mL/m2 LV Volume Index26.08 mL/m2 F: 29 - 61 LV Vol Biplane MOD 62.2 mL FS39.10 % M-Mode TAPSE 1.91 cm (M/F) >1.7 LV Diastology MV E' medial0.109 (>0.07 m/s)E/A Ratio 1.1 LV E/e MED5.70 (<14)MV E Vmax 0.62 (0.4-1.3 m/s) MV E' lateral0.121 (>0.1 m/s)MV A Vmax 0.55 (0.4-1.3 m/s) LV E/e LAT5.10 (<14)MV E/A Ratio 1.06 MV E/E' medial 5.74 MV E/E' lateral5.14 Aortic Valve LVOT Area3.77 cm2AoV Area Vmax3.19 cm2 LVOT Vmax 1.11 m/sAoV Area/ BSA (Vmax)1.73 cm2/m2 LVOT Mean Rafat.0.84 m/sAVA Mean Rafat.3.20 cm2 LVOT Peak Grad 4.9 mmHgAVA Mean Rafat. Index1.73 cm2/m2 LVOT Mean Grad 3.1 mmHg LVOT VTI0.275 m LVOT Diam s 2.15 cm AoV Vmax1.31 m/s Velocity Ratio 0.85 AoV Mean Rafat.0.99 m/s AoV Peak Grad6.9 mmHg LVOT SV 103.66 mL AoV Mean Grad4.2 mmHg AoV VTI0.287 m AoV Area VTI3.61 cm2 AoV Area/ BSA (VTI)1.96 cm/m2 Mitral Valve MV DT 216 (160-240 msec) MV PHT63 msec MV Area PHT 3.52 cm2 Pulmonary Valve PV Vmax 0.84 (0.5-1.5 m/s)RVOT Peak Gr.2.11 mmHg PV Peak Grad 2.8 mmHgRVOT Mean Gr.1.15 mmHg PV Mean Grad 1.9 mmHgRVOT VTI0.159 m PV VTI 0.190 mRVOT Vmax 0.73 m/s Tricuspid Valve TR Peak Grad 14.9 mmHgTR Vmax 1.94 m/s RA Pressure 3.00 mmHg RVSP (TR) 18.0 mmHg Ordered By: Melissa Burns M.D. CC: Dictated By: Henny Walker M.D. 11/14/22 1133 <Electronically signed by Henny Walker M.D. in OV> 11/14/22 1152 Transcribed By: Henyn Walker MD This is privileged, confidential information intended only for the provider named. Any use or distribution by any person other than this provider is strictly prohibited. If you receive this report in error, please notify us immediately at [phone] and return the original report to us at the address above. Thank-you. Anesthesia Assessment and Plan Anesthesia History Personal History: No History of Anesthesia Complications Family History: No Family History of Anesthesia Complications Exercise Tolerance Exercise Tolerance: Metabolic Equivalents>4 Pertinent Negatives Pertinent Negatives: No Symptoms of GERD, No Major Pulmonary Symptoms or Complaints and No History of CVA/TIA Cardiac & Pulmonary Exam Cardiac Exam: Normal S1/S2 Heart Sounds Pulmonary Exam: Clear Bilateral Breath Sounds Implantable Cardiac Device Does patient have a Pacemaker or an ICD?: No Airway Exam Known Difficult Airway: No Mallampati Class: 2 Mouth Opening: Normal (> 3cm) Thyromental Distance: Greater than 3 cm Neck Range of Motion: Full ROM Neck Circumference: Normal Teeth Condition: Normal Dentition ASA Classification ASA Score: ASA 2 Emergency Case?: No NPO Status NPO Status: NPO Clears >2 hours, Solids >8 hours Anesthesia Plan Resuscitation Status: Full Code Anesthesia Technique: General Anesthesia Airway Planned: Natural Airway Monitors Used: Standard Monitors
[2024-12-10 07:28] VITALS: BMI 27.6
[2024-12-10] MEDS: Metoprolol CR 25 MG TABCR PO (07:57)
--- NOTE | 2024-12-10 08:21 | W.PM.ENDDOP ---
Date of service: 12/10/24 Time of Service: 08:21 Endoscopy Report PROCEDURE DESCRIPTION: PROCEDURES PERFORMED: 1. EGD with biopsies PREOPERATIVE DIAGNOSIS: GERD with esophagitis, dysphagia POSTOPERATIVE DIAGNOSIS: LA grade B esophagitis, moderate?sized type I sliding hiatal hernia(Hill grade 3), partial/minimal esophageal stricture SURGEON: Delmer Rubio MD INDICATION FOR PROCEDURE: 69-year-old woman with refractory GERD despite PPI therapy as well as some dysphagia chronically. Last endoscopy was over 10 years ago at which time a hiatal hernia was found. FINDINGS: D2/D3 = normal D1/bulb = normal - no ulcers or inflammation Pylorus = normal Antrum = normal appearance, no ulcers, cold forceps biopsies were taken to rule out H. pylori routinely Body = normal appearance, biopsies taken with cold forceps technique routinely Fundus = normal, 2 or 3 tiny (1-2 mm benign?appearing polyps) Cardia = normal Hiatus = Hill grade 3 hiatal defect with a sliding hiatal hernia. Approximately 2-3 cm slides. Distal esophagus = visible, circumferential esophagitis inflammation. Nothing that visually looks like Montaño's esophagus. The mucosa bleeds easily with just scope manipulation. There is a minimal 33% esophageal stricture developing in the area of esophagitis. All of this was biopsied with cold forceps technique. Mid esophagus = normal - cold forceps biopsies taken to assess histologically and rule out eosinophilic esophagitis Proximal esophagus/hypopharynx/vocal cords = normal SURVEILLANCE-INTERVAL/FOLLOW-UP: Pending path results. Hiatal hernia/antireflux surgery should be considered if the patient does not want to be on chronic PPI therapy. Eosinophilic esophagitis, if present, is probably related to chronic acid reflux. The partial stricture is certainly secondary to chronic acid reflux which is from the hiatal hernia. Specimens: Yes EBL: Minimal COMPLICATIONS: None Procedure in detail: The patient gave written consent and was in agreement with the indications, the potential risks as well as the benefits of the procedure. The patient was taken to the endoscopy suite and laid on their left side. Anesthesia was given which was tolerated well. We performed a timeout and we are in agreement I started the procedure. A well-lubricated endoscope was gently and carefully advanced down the esophagus, into the stomach the scope was and through the pylorus into the duodenum. The scope was then slowly withdrawn with the above-noted findings/interventions. The patient tolerated the procedure well and was then brought back out to day surgery stable.
--- NOTE | 2024-12-10 08:23 | W.PM.DSUDISC ---
Date of service: 12/10/24 Discharge Plan Disposition Patient Disposition: Home Condition: Good Discharge Details Attending Provider: Christopher Rubio Primary Care Provider: Melissa Burns Home Meds and New Rx's Prescriptions: No Action lisinopril 5 mg tablet 5 mg PO DAILY metoprolol succinate 25 mg tablet extended release 24 hr 25 mg PO DAILY valacyclovir 1 gram tablet 2,000 mg PO BID omeprazole 40 mg capsule,delayed release(DR/EC) 20 mg PO DAILY Discharge Instructions Additional Instructions: FINDINGS: You have a lot of inflammation in your esophagus which is secondary to acid reflux. The acid reflux is happening because of having a moderate?sized hiatal hernia and a open doorway from your stomach up and your esophagus letting the acid come up. This can be fixed surgically and you should consider that if you do not want to be on antacid medication long?term and want to definitively treat the acid reflux problem. The swallowing issues are related to everything mentioned above. When that activity happens for a long time, then some scar tissue develops which is why your swallowing is not completely normal. Having surgery, most of the time, will fix that. Call and schedule follow-up visit in the surgery office to discuss if you want to learn more about this option. Stand Alone Forms: Anesthesia Discharge Inst., DSU Post EGD Instructions, Tiki Fregoso (DSU) Activity:: Activity as Tolerated Diet:: As Tolerated Discharge Orders Discharge Orders: Discharge Order (Routine); Ordered 12/10/24 Ordered By: Christopher Rubio
--- NOTE | 2024-12-10 08:43 | STOM_PTH ---
PATIENT: Salma Remy LOC: [facility] U#:[id number] AGE/SX: 69/F ROOM: RE12/10/[address]: Christopher Rubio : 1955 BED: DIS: 12/10/2024 SPEC #: [id number] RECD: 12/10/24 13:07 STATUS: TRICIA Rashard #: [id number] JEEVAN: 12/10/24 08:[address]: Christopher Rubio DEPT: Surgical Specimen RECD BY: Ángela Daivs ENTERED: 12/10/24 13:08 SP TYPE: STOMACH OTHR DR: Melissa Burns Tissues: 1 - STOMACH BIOPSY 2 - ESOPHAGUS BIOPSY 3 - ESOPHAGUS BIOPSY Procedures: GROSS AND MICRO LEVEL 4 Comments: [id number]
[2024-12-10 08:54] VITALS: BP 88/65; PULSE 76; RESP 16; TEMP 36.2; O2SAT 94
[2024-12-10 09:25] VITALS: BP 99/75; PULSE 66; RESP 16; TEMP 36.4; O2SAT 95
--- NOTE | 2024-12-10 09:52 | W.ANESPOSTOP ---
Postoperative Evaluation Date, Time and Location Date Performed: 12/10/24 Time Performed: 09:38 Patient Location: Day Surgery Unit Vital Signs Most Recent Imported Vital Signs: Most Recent Vital Signs Temp Pulse Resp BP Pulse Ox 36.4 C L 66 16 99/75 L 95 12/10/24 09:25 12/10/24 09:25 12/10/24 09:25 12/10/24 09:25 12/10/24 09:25 Pain Score Most Recent Pain Score: Most Recent Pain Score Pain Level 0 12/10/24 09:25 Assessment Mental Status: Awake (Alert & Oriented to Patient Baseline) Airway and Respiratory Function: Patent airway with normal (patient baseline) respiratory exam Cardiovascular Function: Hemodynamically Stable Hydration Status: Adequately Hydrated Nausea & Vomiting: No Nausea or Vomiting Pain: Pt. Denies Any Pain Peripheral Nerve Block: Patient did not receive a nerve block
== END 2024-12-10 09:55 | disposition home or self-care (01) ==
LOC: SUR 06:57
PROVIDERS: PCP Family Medicine; Visit Provider Student in an Organized Health Care Education/Training Program
PROC: 0DJ68ZZ Inspection of Stomach, Via Natural or Artificial Opening Endoscopic (ICD-10-PCS; CPT 43235; principal; 2024-12-10 08:15)
DX: K21.00 Gastro-esophageal reflux disease with esophagitis, without bleeding (principal); K44.9 Diaphragmatic hernia without obstruction or gangrene; K22.89 Other specified disease of esophagus
CPT/HCPCS: 43239; 88305; J2250; J2704

== ENCOUNTER 2025-03-31 07:30 | Outpatient (CLI) | payer MEDICARE, BC, SELFPAY ==
--- NOTE | 2025-03-31 | DI.US_ITS ---
Exam(s) US SOFT TISSUE HEAD OR NECK EXAM: US SOFT TISSUE HEAD OR NECK CLINICAL HISTORY: MASS LT SIDE OF NECK,R22.1. TECHNIQUE: Ultrasound was performed using standard protocol. COMPARISON: No exams were available for comparison FINDINGS: Sonographic assessment utilizing grayscale and color Doppler imaging was performed and targeted to the area of clinical concern on the left side of the neck. There is a lymph node corresponding to the region of the palpable abnormality which measures 1.8 x 0.9 x 1 7 cm. The appearance is consistent with the reactive lymph node. On the right side of the neck, there is a lymph node measuring 1.6 x 0.8 x 1.5 cm. IMPRESSION: Palpable abnormality corresponds to a reactive lymph node. No suspicious masses identified. DATA REPOSITORY:
== END 2025-03-31 07:50 ==
LOC: DI 07:31
PROVIDERS: PCP Family Medicine; Visit Provider Family Medicine
DX: R22.1 Localized swelling, mass and lump, neck (principal)
CPT/HCPCS: 76536

== ENCOUNTER 2025-04-09 03:02 | Outpatient (CLI) | payer MEDICARE, BC, SELFPAY ==
--- NOTE | 2025-04-09 14:00 | DI.DEXA_ITS ---
Exam(s) XR DEXA BONE DENSITY W/WO BILL EXAM: XR DEXA BONE DENSITY W/WO BILL CLINICAL HISTORY: ASYMPTOMATIC MENOPAUSAL STATE Z78.0 TECHNIQUE: Aquaspy C densitometer analysis of left hip, lumbar spine and left forearm. Lateral survey image of the thoracic and lumbar spine. COMPARISON: No exams were available for comparison FINDINGS: Lateral view of the thoracic and lumbar spine shows no evidence of compression fractures. Bone mineral density measurements of the lumbar spine correspond to a total T- score of -0.8, in the normal range. Bone mineral density measurements of the left hip correspond to a total T-score of -0.9. The femoral neck T-score is -1.8, in the osteopenic range.. Theleft forearm bone mineral density measurements correspond to a T-score of the distal 3rd of -1.2, in the osteopenic range.. IMPRESSION: Normal bone mineral density of the spine. Osteopenia of the forearm and hip.
== END 2025-04-09 03:22 ==
LOC: DI 03:02
PROVIDERS: PCP Family Medicine; Visit Provider Family Medicine
DX: Z78.0 Asymptomatic menopausal state (principal); M85.89 Other specified disorders of bone density and structure, multiple sites
CPT/HCPCS: 77080